=== PATIENT | male | born 1930 | race Asian ===

== ENCOUNTER 2018-10-19 23:25 | Inpatient (IN) | payer MEDICARE, MEDICAID ==
[~2018-10-19] VITALS: Ht 165.1 cm; Wt 68.0 kg
[2018-10-19 23:25] VITALS: BP 157/88
[2018-10-19] MEDS ORDERED: ADALAT20 MG ORAL (23:32)
[2018-10-19] MEDS ORDERED: BENADRYL25 MG ORAL (23:35)
[2018-10-19] MEDS ORDERED: ACETAMINOPHEN325 M1 ORAL (23:35)
[2018-10-19] MEDS ORDERED: METOPROLOL TART25 MG ORAL (23:35)
[2018-10-19] MEDS ORDERED: CLARITIN10 M2 ORAL (23:35)
[2018-10-19] MEDS ORDERED: NAMZARIC 28 MG1 EACH PO (23:35)
[2018-10-19] MEDS ORDERED: QUETIAPINE FUMA25 MG ORAL (23:35)
--- NOTE | 2018-10-19 23:35 | NUR ---
ED Nurse Note: PT wa brought in by ra Felder from [facility] c/o aloc, per ems, staff there told them that the pt is not on the usual mental status.
[2018-10-20 00:20] LABS: APPEARANCE,URINE SLIGHTLY CLOUDY; BILIRUBIN, URINE NEGATIVE (NEGATIVE); GLUCOSE, URINE (UA) 1+ (NEGATIVE); KETONES,URINE 1+ (NEGATIVE); LEUKOCYTE ESTERASE ,URINE 1+ (NEGATIVE); NITRITE,URINE NEGATIVE (NEGATIVE); PH,URINE 5 (4.5-8.0); PROTEIN,URINE 3+ (NEGATIVE); UROBILINOGEN,URINE NORMAL MG/DL (0.0-1.0)
[2018-10-20 00:25] LABS: BASOPHILS % (AUTO) 0.8 % (0.0-2.0); EOSINOPHILS % (AUTO) 0.7 % (0.0-3.0); HEMATOCRIT 32.7 % (42.0-52.0); HEMOGLOBIN 11.3 G/DL (14.2-18.0); LYMPHOCYTES % (AUTO) 9.3 % (20.0-45.0); MEAN CORPUSCULAR VOLUME 98 FL (80-99); MONOCYTES % (AUTO) 7.3 % (1.0-10.0); NEUTROPHILS % (AUTO) 81.9 % (45.0-75.0); PLATELET COUNT 183 K/UL (150-450); RED BLOOD COUNT 3.33 M/UL (4.70-6.10); WHITE BLOOD COUNT 7.8 K/UL (4.8-10.8)
[2018-10-20 00:33] LABS: COLOR,URINE YELLOW
[2018-10-20 00:33] LABS: ANION GAP 12 mmol/L (5-15); BLOOD UREA NITROGEN 43 mg/dL (7-18); CALCIUM 9.6 MG/DL (8.5-10.1); CARBON DIOXIDE 25 MMOL/L (21-32); CHLORIDE 105 MMOL/L (98-107); CREATININE 3.1 MG/DL (0.55-1.30); POTASSIUM 4.8 MMOL/L (3.5-5.1); SODIUM 141 MMOL/L (136-145)
[2018-10-20] MEDS ORDERED: LORazepam Inj 2mg/ml 1ml IV ONE (00:45)
[2018-10-20] MEDS ORDERED: cefTRIAXone 1 GM in NS 55 ML IVPB ONE (00:45)
[2018-10-20] MEDS ORDERED: Haloperidol 5mg/ml Inj IM ONE (01:15)
[2018-10-20 01:36] VITALS: BP 150/88
--- NOTE | 2018-10-20 01:48 | Emergency Room Report ---
History of Present Illness General Chief Complaint: Altered Level of Consciousness Source: Medical Record, EMS Present Illness HPI Is an 87 year-old Occitan speaking male with a history of dementia and high blood pressure. He resided in an assisted living facility. EMS was called for altered mental status. According to truck driver instructor, nursing staff said that at baseline he has some confusion but appear to be more confused today. His heart rate was also elevated in the 140s. Patient does not appear to be any distress. There was no nausea vomiting or pain complaint. Allergies: Coded Allergies: No Known Allergies (Unverified , 10/19/18) Patient History Past Medical History: see triage record, old chart reviewed, HTN Past Surgical History: other Pertinent Family History: none Social History: Denies: smoking Immunizations: other Reviewed Nursing Documentation: PMH: Agreed; PSxH: Agreed Nursing Documentation-PMH Hx Hypertension: Yes History Of Psychiatric Problem: Yes - dementia Review of Systems Eye: Denies: eye pain, blurred vision ENT: Denies: ear pain, nose congestion, throat swelling Respiratory: Denies: cough, shortness of breath Cardiovascular: Denies: chest pain, palpitations Gastrointestinal: Denies: abdominal pain, diarrhea, nausea, vomiting Musculoskeletal: Denies: back pain, joint pain Skin: Denies: rash Neurological: Denies: headache, numbness Endocrine: Denies: increased thirst, increased urine Hematologic/Lymphatic: Denies: easy bruising All Other Systems: negative except mentioned in HPI Physical Exam Vital Signs Date Time Temp Pulse Resp B/P (MAP) Pulse Ox O2 Delivery O2 Flow Rate FiO2 10/19/18 23:21 98.4 76 17 157/88 100 Room Air 10/19/18 23:25 99 vitals with high blood pressure Sp02 EP Interpretation: reviewed, normal General Appearance: well appearing, no apparent distress, alert Head: normocephalic, atraumatic Eyes: bilateral eye PERRL, bilateral eye EOMI ENT: hearing grossly normal, normal pharynx Neck: full range of motion, supple, no meningismus Respiratory: chest non-tender, lungs clear, normal breath sounds Cardiovascular #1: regular rate, rhythm, no murmur, tachycardia Gastrointestinal: normal bowel sounds, non tender, no mass, no organomegaly, no bruit, non-distended Musculoskeletal: back normal, normal range of motion Neurologic: grossly normal Psychiatric: other - Agitated Skin: warm/dry Medical Decision Making Diagnostic Impression: Primary Impression: ACS (acute coronary syndrome) Additional Impressions: UTI (urinary tract infection) Qualified Codes: N30.00 - Acute cystitis without hematuria Anemia Qualified Codes: D64.9 - Anemia, unspecified ARF (acute renal failure) Qualified Codes: N17.9 - Acute kidney failure, unspecified Proteinuria Qualified Codes: R80.9 - Proteinuria, unspecified Encephalopathy acute ER Course Patient presents with an altered mental status. This may be secondary to infection from UTI. Was tachycardic here in the low 100-110s. When he became more agitated and heart rate goes up to the 120s to 130s, there is more prominent ST depression. This is concerning for demand ischemia. His troponin is elevated. He may have a non-STEMI. Aspirin and Lovenox given here. No evidence of TIA or CVA. According to senior living note, he is a DO NOT RESUSCITATE. Will admit for further workup and cardiology consult. Baseline creatinine is unknown since this is first time here. I contacted Dr. Kirby for admission. Laboratory Tests Test 10/19/18 23:45 10/20/18 00:00 White Blood Count 7.8 K/UL (4.8-10.8) Red Blood Count 3.33 M/UL (4.70-6.10) L Hemoglobin 11.3 G/DL (14.2-18.0) L Hematocrit 32.7 % (42.0-52.0) L Mean Corpuscular Volume 98 FL (80-99) Mean Corpuscular Hemoglobin 34.0 PG (27.0-31.0) H Mean Corpuscular Hemoglobin Concent 34.6 G/DL (32.0-36.0) Red Cell Distribution Width 12.0 % (11.6-14.8) Platelet Count 183 K/UL (150-450) Mean Platelet Volume 6.9 FL (6.5-10.1) Neutrophils (%) (Auto) 81.9 % (45.0-75.0) H Lymphocytes (%) (Auto) 9.3 % (20.0-45.0) L Monocytes (%) (Auto) 7.3 % (1.0-10.0) Eosinophils (%) (Auto) 0.7 % (0.0-3.0) Basophils (%) (Auto) 0.8 % (0.0-2.0) Sodium Level 141 MMOL/L (136-145) Potassium Level 4.8 MMOL/L (3.5-5.1) Chloride Level 105 MMOL/L (98-107) Carbon Dioxide Level 25 MMOL/L (21-32) Anion Gap 12 mmol/L (5-15) Blood Urea Nitrogen 43 mg/dL (7-18) H Creatinine 3.1 MG/DL (0.55-1.30) H Estimat Glomerular Filtration Rate mL/min (>60) Glucose Level 157 MG/DL (74-106) H Calcium Level 9.6 MG/DL (8.5-10.1) Troponin I 0.422 ng/mL (0.000-0.056) Urine Color Yellow Urine Appearance Slightly cloudy Urine pH 5 (4.5-8.0) Urine Specific [place] 1.020 (1.005-1.035) Urine Protein 3+ (NEGATIVE) H Urine Glucose (UA) 1+ (NEGATIVE) H Urine Ketones 1+ (NEGATIVE) H Urine Blood 2+ (NEGATIVE) H Urine Nitrite Negative (NEGATIVE) Urine Bilirubin Negative (NEGATIVE) Urine Urobilinogen Normal MG/DL (0.0-1.0) Urine Leukocyte Esterase 1+ (NEGATIVE) H Urine RBC 2-4 /HPF (0 - 0) H Urine WBC 2-4 /HPF (0 - 0) Urine Squamous Epithelial Cells Few /LPF (NONE/OCC) Urine Amorphous Sediment Many /LPF (NONE) H Urine Bacteria Moderate /HPF (NONE) H Urine Coarse Granular Casts 5-10 /LPF (NONE) H Lab Results Impression labs with elevated troponin and creatinine EKG Diagnostic Results Rate: tachycardiac Rhythm: NSR ST Segments: other - NSST changes Other Impression EKG #2: sinus tach at 129, ST depression anterior-laterally. Baseline tremors. ASA given to the pt in ED: Yes Rhythm Strip Diag. Results Rhythm Strip Time: 01:47 EP Interpretation: yes Rate: 105 Rhythm: NSR, no PVC's, no ectopy Chest X-Ray Diagnostic Results Chest X-Ray Diagnostic Results : Chest X-Ray Ordered: Yes # of Views/Limited/Complete: 1 View Indication: Chest Pain EP Interpretation: Yes Interpretation: no consolidation, no effusion, no pneumothorax, no acute cardiopulmonary disease Impression: No acute disease Electronically Signed by: Trey Ramon MD CT/MRI/US Diagnostic Results CT/MRI/US Diagnostic Results : Imaging Test Ordered: CT head Impression negative per radiologist Last Vital Signs Date Time Temp Pulse Resp B/P (MAP) Pulse Ox O2 Delivery O2 Flow Rate FiO2 10/20/18 01:36 98.4 72 17 150/88 100 Room Air 10/19/18 23:25 99 Status: improved Disposition: ADMITTED INPATIENT Condition: Serious Referrals: NON PHYSICIAN (PCP) Trey Ramon MD Oct 20, 2018 01:48
--- NOTE | 2018-10-20 02:00 | NUR ---
Note rissa in EDM - 10/20/18 at 0252 by MOHIT ED Nurse Note: PT is transfered to [facility] with BRANT TORRES. pt has been transfered with all belongings. pt status, condition and vital signs [facility] to transfer and is reported to reciving RN. pt is stable for transfer.
[2018-10-20 02:51] VITALS: BP 151/86
--- NOTE | 2018-10-20 02:52 | NUR ---
ED Nurse Note: PT is transfered to TELE floor with RN MELISSA. pt has been transfered with all belongings. pt status, condition and vital signs is reported to ERMD prior to transfer and is reported to reciving RN. pt is stable for transfer.
--- NOTE | 2018-10-20 03:00 | NUR ---
NURSE NOTES: Report received from Alexis TOOLMAKER HELPER. Patient is transferred via gurney without any incident from ER to Telemetry. Patient is arousable by voice and tactile stimuli, unable to follow commands and verbalized needs. Vital signs are as follows: BP: 160/85, HR: 98, O2: 96, T: 98.1. Patient has no s/s of distress at this time. IV on LFA 18g, asymptomatic, patent, and intact. Skin assessment done with charge nurse. No skin tear noted. Bilateral edema shown on lower extremities. Bed is in lowest position with side rails up x2 and brakes are engaged. Bed alarm is on. Will continue to monitor.
--- NOTE | 2018-10-20 05:57 | NUR ---
NURSE NOTES: Contacted Dr. Mendoza regarding inpatient orders, awaiting call back.
--- NOTE | 2018-10-20 06:00 | NUR ---
NURSE NOTES: Attempted to contact [facility] regarding patient's PNA and influenza vaccine status, however, no one answered. Will retry at a later time.
--- NOTE | 2018-10-20 06:23 | NUR ---
NURSE NOTES: Spoke to [employer] boss [facility], per RN, unable to provide influenza and PNA vaccine due to medical records being closed at this time, recommended to call office hours between [phone]. Will endorse to day shift nurse.
[2018-10-20] MEDS ORDERED: Acetaminophen 500mg (ES) tab ORAL PRN (06:30)
--- NOTE | 2018-10-20 07:27 | NUR ---
HAND-OFF: Report given to Pancho GUO. Patient is asleep but arousable by tactile stimuli. Respiratory even and unlabored. Endorsed plan of care.
--- NOTE | 2018-10-20 07:32 | NUR ---
NURSE NOTES: Received report from BRANT Hernandez. Patient asleep and is in stable condition. No acute distress/SOB noted. Will continue plan of care.
[2018-10-20 08:00] VITALS: BP 130/75
--- NOTE | 2018-10-20 09:00 | Diagnostic Imaging Report ---
Indications: Altered mental status Technique: Spiral acquisitions obtained through the brain. Angled axial and coronal 5 x 5 mm slices were reconstructed. Total dose length product 2202.8 mGycm. CTDI vol(s) 70.38,70.38 mGy. Dose reduction achieved using automated exposure control Comparison: None. Findings: There is marked age-related enlargement of the ventricles and extra-axial CSF spaces. 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 No acute intrarenal hemorrhage nor edema. No mass effect nor midline shift. Intact calvarium. Visualized orbits and sinuses are unremarkable Impression: Chronic and age-related changes. Negative for acute intracranial bleed or mass effect This agrees with the preliminary interpretation provided overnight by [facility] teleradiology service. The CT scanner at [facility] is accredited by the [employer] and the scans are performed using protocols designed to limit radiation exposure to as low as reasonably achievable to attain images of sufficient resolution adequate for diagnostic evaluation.
[2018-10-20] MEDS: Metoprolol 25mg tab ORAL SCH ×2 (09:15→21:09)
[2018-10-20 09:19] LABS: BASOPHILS % (AUTO) 0.7 % (0.0-2.0); EOSINOPHILS % (AUTO) 1.4 % (0.0-3.0); HEMATOCRIT 31.9 % (42.0-52.0); HEMOGLOBIN 10.5 G/DL (14.2-18.0); LYMPHOCYTES % (AUTO) 18.2 % (20.0-45.0); MEAN CORPUSCULAR VOLUME 100 FL (80-99); MONOCYTES % (AUTO) 10.4 % (1.0-10.0); NEUTROPHILS % (AUTO) 69.2 % (45.0-75.0); PLATELET COUNT 143 K/UL (150-450); RED BLOOD COUNT 3.19 M/UL (4.70-6.10); RED CELL DISTRIBUTION WIDTH 12.6 % (11.6-14.8); WHITE BLOOD COUNT 6.7 K/UL (4.8-10.8)
[2018-10-20 09:49] LABS: ALANINE AMINOTRANSFERASE 36 U/L (12-78); ALBUMIN 2.9 G/DL (3.4-5.0); ALBUMIN/GLOBULIN RATIO 0.9 (1.0-2.7); ALKALINE PHOSPHATASE 65 U/L (46-116); ANION GAP 12 mmol/L (5-15); ASPARTATE AMINO TRANSFERASE 54 U/L (15-37); BILIRUBIN,TOTAL 0.7 MG/DL (0.2-1.0); BLOOD UREA NITROGEN 36 mg/dL (7-18); CARBON DIOXIDE 23 MMOL/L (21-32); CHLORIDE 108 MMOL/L (98-107); CHOLESTEROL 145 MG/DL (< 200); CREATININE 2.6 MG/DL (0.55-1.30); HDL CHOLESTEROL 32 MG/DL (40-60); PHOSPHORUS 2.8 MG/DL (2.5-4.9); POTASSIUM 4.3 MMOL/L (3.5-5.1); SODIUM 143 MMOL/L (136-145); TRIGLYCERIDES 108 MG/DL (30-150)
[2018-10-20 09:57] LABS: CALCIUM 8.6 MG/DL (8.5-10.1)
--- NOTE | 2018-10-20 10:54 | Diagnostic Imaging Report ---
Indication: Cough Technique: One view of the chest Comparison: none Findings: The heart is upper limits normal in size. The lungs and pleural spaces are clear. The aorta is tortuous and calcified Impression: No acute process
--- NOTE | 2018-10-20 11:19 | NUR ---
NURSE NOTES: Informed Dr. Garcia regarding Troponin level.
[2018-10-20 12:00] VITALS: BP 161/74
--- NOTE | 2018-10-20 14:15 | Consultation ---
Consult Note Consult Note asked to eval for renal failure NEHA Is an 87 year-old Swedish speaking male with a history of dementia and high blood pressure. He resided in an assisted living facility. EMS was called for altered mental status. According to park interpreter, nursing staff said that at baseline he has some confusion but appear to be more confused today. His heart rate was also elevated in the 140s. Patient does not appear to be any distress. There was no nausea vomiting or pain complaint. No Known Allergies (Unverified , 10/19/18) Hx Hypertension: Yes History Of Psychiatric Problem: Yes - dementia examined discussed with animal control supervisor/Plan Acute on chronic renal failure Dehydration Anemia UTI Elevated troponin HTN Dementia Plan: Hydrate- Flomax Nitropaste ASA Anemia abbasi BP control per orders Wallace Ny MD Oct 20, 2018 14:15
[2018-10-20] MEDS ORDERED: HydrALAZINE 25mg tab ORAL PRN (14:30)
[2018-10-20] MEDS: Nitroglycerin Patch 0.4mg TDERMAL SCH (14:53)
[2018-10-20] MEDS: D5NS 1,000 ML IV SCH (14:55)
--- NOTE | 2018-10-20 15:13 | NUR ---
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 98.5 HR 76 RR 17 B/P 157/86 BUN 43 CR 3.1 TROP 0.422 URINE + PROTEIN,KETONES,RBC,LEUKOCYTE ESTERASE,BACTERIA CXR= NO ACUTE PROCESS HEAD CT= NO BLEEDING IS: IV BOLUS NS X 1 LITER HALDOL ADMITTED TO TELE @ 0303 TELE STATUS
--- NOTE | 2018-10-20 15:15 | Consultation ---
DATE OF CONSULTATION: 10/20/2018 INFECTIOUS DISEASES CONSULTATION CONSULTING PHYSICIAN: Bret Lilly M.D. PRIMARY ATTENDING PHYSICIAN: Raquel Mendoza M.D. REASON FOR CONSULTATION: UTI. HISTORY OF PRESENT ILLNESS: The patient is an 87-year-old male admitted today from assisted living with altered mental status. At the time of admission, the patient had a heart rate of 140, had elevated troponin, was found to have acute renal failure. The patient is not a source of history. PAST MEDICAL HISTORY: Significant for diabetes and hypertension. ALLERGIES: No known drug allergies. MEDICATIONS: Got a dose of ceftriaxone, haloperidol, and lorazepam. In the ER currently on metoprolol and Tylenol. SOCIAL HISTORY: Single, in assisted living, Persian. Has daughter and son. REVIEW OF SYSTEMS: Unobtainable. PHYSICAL EXAMINATION: VITAL SIGNS: Temperature 97.7, pulse 67, blood pressure 130/75. GENERAL APPEARANCE: He seems to have normal weight, no acute distress. HEAD AND NECK: [place] conjunctiva. HEART: S1 and S2. Regular. LUNGS: Clear. ABDOMEN: Soft, nontender. EXTREMITIES: No edema. SKIN: Bruises. LABORATORY AND DIAGNOSTIC DATA: Sodium 143, potassium 4.3, chloride 108, bicarbonate 23, BUN 36, and creatinine 2.6. Creatinine at the time of admission was 3.1. Uric acid was 9.2, and glucose 134. The highest troponin level was 0.503. Albumin is 2.9. UA showed wbc's of 2 to 4, rbc's of 2 to 4, leukocyte esterase 1+. Cultures are pending. There was no chest x-ray. CT scan of the head showed chronic age-related changes, no acute intracranial bleeding or mass effect. IMPRESSION: 1. Altered mental status, we will try to rule out infection as a cause. 2. Elevated troponin likely non-ST myocardial infarction. 3. Acute renal failure. 4. Dementia. 5. Hypertension. RECOMMENDATION: We will continue with ceftriaxone. We will obtain a chest x-ray. We will follow up the cultures. At the end of my exam, I thank Dr. Mendoza for involving me in the care of this patient. Bret Lilly M.D. DR: Cynthia JOB#: [id number] CC:
[2018-10-20 16:00] VITALS: BP 153/91
--- NOTE | 2018-10-20 18:24 | Cardiology Report ---
APPROVED REPORT EKG Measurement Heart [id number] Sinus tachycardia with premature supraventricular complexes Left ventricular hypertrophy with repolarization abnormality Abnormal ECG
--- NOTE | 2018-10-20 19:26 | NUR ---
HAND-OFF: Report given to BRANT Rivera. Patient is stable condition. Endorsed plan of care.
--- NOTE | 2018-10-20 19:27 | NUR ---
NURSE NOTES: Received report from BRANT Deleon. Patient in bed awake, with no signs of acute distress. Respiration even and non labored on room air. No SOB. Vitals stable. Bed in lowest position. Call light within reach. All needs attended and met. Will continue plan of care.
--- NOTE | 2018-10-20 19:40 | Cardiology Progress Note ---
Assessment/Plan Assessment/Plan The patient is seen and examined, full cardiology consult note is dictated. Objective Last 24 Hour Vital Signs Date Time Temp Pulse Resp B/P (MAP) Pulse Ox O2 Delivery O2 Flow Rate FiO2 10/20/18 16:00 97.3 74 20 153/91 (111) 98 10/20/18 16:00 65 10/20/18 14:53 158/76 10/20/18 12:00 87 10/20/18 12:00 97.5 70 20 161/74 (103) 98 10/20/18 10:14 Room Air 10/20/18 09:15 67 130/75 10/20/18 08:00 68 10/20/18 08:00 97.7 67 18 130/75 (93) 97 10/20/18 04:49 Room Air 10/20/18 03:15 92 10/20/18 02:51 98.4 71 17 113/74 100 Room Air 99 10/20/18 02:51 98.4 71 17 151/86 100 Room Air 10/20/18 02:01 98.4 72 17 111/75 100 Room Air 99 10/20/18 01:36 98.4 72 17 150/88 100 Room Air 10/19/18 23:25 98.4 75 17 157/88 100 Room Air 10/19/18 23:25 76 17 Room Air 99 10/19/18 23:21 98.4 76 17 157/88 100 Room Air Intake and Output 10/19/18 10/20/18 19:00 07:00 Intake Total 1000 ml Balance 1000 ml Intake IV Total 1000 ml # Voids 1 Laboratory Tests Test 10/19/18 23:45 10/20/18 00:00 10/20/18 09:09 White Blood Count 7.8 K/UL (4.8-10.8) 6.7 K/UL (4.8-10.8) Red Blood Count 3.33 M/UL (4.70-6.10) L 3.19 M/UL (4.70-6.10) L Hemoglobin 11.3 G/DL (14.2-18.0) L 10.5 G/DL (14.2-18.0) L Hematocrit 32.7 % (42.0-52.0) L 31.9 % (42.0-52.0) L Mean Corpuscular Volume 98 FL (80-99) 100 FL (80-99) H Mean Corpuscular Hemoglobin 34.0 PG (27.0-31.0) H 33.0 PG (27.0-31.0) H Mean Corpuscular Hemoglobin Concent 34.6 G/DL (32.0-36.0) 33.0 G/DL (32.0-36.0) Red Cell Distribution Width 12.0 % (11.6-14.8) 12.6 % (11.6-14.8) Platelet Count 183 K/UL (150-450) 143 K/UL (150-450) L Mean Platelet Volume 6.9 FL (6.5-10.1) 6.4 FL (6.5-10.1) L Neutrophils (%) (Auto) 81.9 % (45.0-75.0) H 69.2 % (45.0-75.0) Lymphocytes (%) (Auto) 9.3 % (20.0-45.0) L 18.2 % (20.0-45.0) L Monocytes (%) (Auto) 7.3 % (1.0-10.0) 10.4 % (1.0-10.0) H Eosinophils (%) (Auto) 0.7 % (0.0-3.0) 1.4 % (0.0-3.0) Basophils (%) (Auto) 0.8 % (0.0-2.0) 0.7 % (0.0-2.0) Sodium Level 141 MMOL/L (136-145) 143 MMOL/L (136-145) Potassium Level 4.8 MMOL/L (3.5-5.1) 4.3 MMOL/L (3.5-5.1) Chloride Level 105 MMOL/L (98-107) 108 MMOL/L (98-107) H Carbon Dioxide Level 25 MMOL/L (21-32) 23 MMOL/L (21-32) Anion Gap 12 mmol/L (5-15) 12 mmol/L (5-15) Blood Urea Nitrogen 43 mg/dL (7-18) H 36 mg/dL (7-18) H Creatinine 3.1 MG/DL (0.55-1.30) H 2.6 MG/DL (0.55-1.30) H Estimat Glomerular Filtration Rate mL/min (>60) mL/min (>60) Glucose Level 157 MG/DL (74-106) H 134 MG/DL (74-106) H Calcium Level 9.6 MG/DL (8.5-10.1) 8.6 MG/DL (8.5-10.1) Troponin I 0.422 ng/mL (0.000-0.056) 0.503 ng/mL (0.000-0.056) Urine Color Yellow Urine Appearance Slightly cloudy Urine pH 5 (4.5-8.0) Urine Specific [place] 1.020 (1.005-1.035) Urine Protein 3+ (NEGATIVE) H Urine Glucose (UA) 1+ (NEGATIVE) H Urine Ketones 1+ (NEGATIVE) H Urine Blood 2+ (NEGATIVE) H Urine Nitrite Negative (NEGATIVE) Urine Bilirubin Negative (NEGATIVE) Urine Urobilinogen Normal MG/DL (0.0-1.0) Urine Leukocyte Esterase 1+ (NEGATIVE) H Urine RBC 2-4 /HPF (0 - 0) H Urine WBC 2-4 /HPF (0 - 0) Urine Squamous Epithelial Cells Few /LPF (NONE/OCC) Urine Amorphous Sediment Many /LPF (NONE) H Urine Bacteria Moderate /HPF (NONE) H Urine Coarse Granular Casts 5-10 /LPF (NONE) H Uric Acid 9.2 MG/DL (2.6-7.2) H Phosphorus Level 2.8 MG/DL (2.5-4.9) Magnesium Level 1.8 MG/DL (1.8-2.4) Total Bilirubin 0.7 MG/DL (0.2-1.0) Aspartate Amino Transf (AST/SGOT) 54 U/L (15-37) H Alanine Aminotransferase (ALT/SGPT) 36 U/L (12-78) Alkaline Phosphatase 65 U/L (46-116) C-Reactive Protein, Quantitative 6.8 mg/dL (0.00-0.90) H Total Protein 6.1 G/DL (6.4-8.2) L Albumin 2.9 G/DL (3.4-5.0) L Globulin 3.2 g/dL Albumin/Globulin Ratio 0.9 (1.0-2.7) L Triglycerides Level 108 MG/DL (30-150) Cholesterol Level 145 MG/DL (< 200) LDL Cholesterol 94 mg/dL (<100) HDL Cholesterol 32 MG/DL (40-60) L Cholesterol/HDL Ratio 4.5 (3.3-4.4) H Thyroid Stimulating Hormone (TSH) 1.093 uiU/mL (0.358-3.740) Microbiology Date/Time Source Procedure Growth Status 10/20/18 02:08 Rectum Received Chris Garcia MD Oct 20, 2018 19:40
[2018-10-20 20:00] VITALS: BP 155/89
[2018-10-20] MEDS: Tamsulosin 0.4mg cap ORAL SCH (21:08)
[2018-10-20] MEDS: Atorvastatin 20mg tab ORAL SCH (21:09)
--- NOTE | 2018-10-20 23:00 | Consultation ---
DATE OF CONSULTATION: 10/20/2018 CARDIOLOGY CONSULTATION CONSULTING PHYSICIAN: Chris Garcia M.D. REFERRING PHYSICIAN: Raquel Mendoza M.D. REASON FOR CONSULTATION: Management of tachycardia. HISTORY OF PRESENT ILLNESS: The patient is a very unfortunate 87-year-old Spanish gentleman, who is transferred from assisted living facility for evaluation of altered mental status. According to the paramedics, nursing staff at the facility mentioned that the patient showed some signs of confusion more than his baseline. His heart rate was also elevated around to 140s. At the time of arrival to the hospital, the initial blood pressure was 157/88 mmHg and pulse was 76. A 12-lead electrocardiogram in the emergency department revealed sinus rhythm at rate of 96 with frequent premature atrial complexes as well as some nonspecific ST and T-wave abnormalities. Ischemia could not be completely excluded. The patient underwent some initial evaluation in the emergency department including chest x-ray which showed cardiomegaly, but no acute cardiopulmonary disease as well as CT of head which revealed chronic and age-related changes negative for acute intracranial bleed or mass effect. Initial laboratory showed presence of anemia with hemoglobin of 11.3 and hematocrit 32.7, as well as left shift and creatinine of 3.1 and BUN of 43. The troponin I levels were also elevated at 0.4 and 0.5. Cardiology consultation was made at request of Dr. Mendoza for evaluation of tachycardia as well as assessing for possible [id number] myocardial infarction. PAST MEDICAL HISTORY: Hypertension. PAST SURGICAL HISTORY: None. MEDICATIONS: List of medications in the assisted living facility included acetaminophen 650 mg q.4 h. p.r.n. pain and temperature over 100.5, Benadryl 25 mg p.o. q.6 h. p.r.n. itching, Claritin 10 mg p.o. daily, Namzaric 28/10 one capsule p.o. daily, metoprolol 25 mg twice daily, nifedipine 30 mg p.o. daily, and Seroquel 25 mg p.o. daily. ALLERGIES: To EMMETT inhibitors and ARBs. FAMILY HISTORY: No premature coronary artery disease according to the records. SOCIAL HISTORY: No history of prior tobacco, alcohol, or illicit drug use. REVIEW OF SYSTEMS: HEENT: The patient denies any headache, diplopia, or blurred vision. CONSTITUTIONAL: Denies any fever, chills, night sweats, or weight loss. CARDIOVASCULAR: Did not complain of chest pain, shortness of breath, PND, orthopnea, or leg swelling. PULMONARY: Denies any cough, hemoptysis, or wheezing. GENITOURINARY: Denies any hematuria, dysuria, or incontinence. GASTROINTESTINAL: Denies any nausea, vomiting, diarrhea, constipation, abdominal pain, or GI bleed. NEUROLOGIC: Denies any motor dysfunction, sensory deficit, or altered speech. ENDOCRINE: No diabetes or signs of hypothyroidism or hyperthyroidism. PHYSICAL EXAMINATION: VITAL SIGNS: Blood pressure at time of arrival to the hospital was 157/88, pulse of 76, respirations 17, temperature 98.4 degrees Fahrenheit, and O2 saturation 100% on room air. GENERAL: The patient is a very unfortunate 87-year-old Spanish gentleman who appears to be confused, presence of language barrier, in no apparent respiratory distress. HEENT: Atraumatic and normocephalic. Anicteric. Pupils are equal, round, and reactive to light and accommodation. Extraocular muscles intact. NECK: JVP less than 5 cm. No carotid bruit. Carotid upstrokes 2+ bilaterally. CARDIOVASCULAR SYSTEM: Normal S1, S2. Regular rate and rhythm. No murmurs, gallops, or rubs. PMI is at fourth intercostal space at the midclavicular line. LUNGS: Clear to auscultation bilaterally. ABDOMEN: Soft, nontender, and nondistended. No hepatosplenomegaly. Positive bowel sounds. EXTREMITIES: No evidence of edema, clubbing, or cyanosis. Both upper extremity skin shows evidence of large ecchymosis in both forearms. LABORATORY FINDINGS: Sodium was 141, potassium 4.8, chloride 105, bicarbonate 25, BUN of 43, creatinine 3.1, glucose 157, calcium is 9.6. Troponin I is 0.40 and 0.050. TSH is 1.09. Triglycerides 108, total cholesterol 145, LDL is 94, HDL is 32. ASSESSMENT AND PLAN: The patient is a very unfortunate 87-year-old gentleman who is seen in Cardiology consultation. 1. Slight elevation of troponin I level in this patient could be [id number] myocardial infarction type 2 versus elevated troponin level due to chronic kidney disease. We will like to obtain 2D echocardiography for assessment of LV systolic function as well as wall motion abnormalities. The patient may benefit from cardiac catheterization in the long run once the stability of renal function is provided. At this time, I will agree with aspirin, statins, and beta-wyatt for double-product control. Further therapeutic and diagnostic decision depends on the clinical course of the patient in the next few days, in particular the status of renal function as well as the results of 2D echocardiography. Given the fact that the patient does not have any chest pain, no further urgent test is required. 2. Hypertension. With evidence of hypertensive heart disease, I would agree with continuation of nifedipine that the pain was taking at home in association with beta-blockers. 3. Renal failure, acute versus chronic. The patient is currently being evaluated by cuff stitcher. 4. Altered level of consciousness, most likely due to worsening renal failure. CT of head was negative. We will continue the patient on hydration. I would like to thank, Dr. Mendoza, for allowing me to participate in the care of this patient. Chris Garcia M.D. DR: Neil JOB#: [id number] CC:
[2018-10-21] VITALS: BP 115/58
[2018-10-21] MEDS ORDERED: cefTRIAXone 1 GM in D5W 55 ML IVPB SCH (01:00)
[2018-10-21 04:00] VITALS: BP 91/45
--- NOTE | 2018-10-21 04:00 | History and Physical Report ---
DATE OF ADMISSION: 10/20/2018 HISTORY OF PRESENT ILLNESS: The patient is admitted to rule out ACS and urinary tract infection. The patient is demented, contracted, has mumbled speech, eyes opened. We cannot get any history. The patient has ecchymosis on both hands and is admitted for altered mental status as well as urinary tract infection. The patient has dementia. According to the , he has been more confused than baseline. He is lethargic; however, responds to deep noxious stimuli. He is DNR. [place] speaking. CT scan of the head was negative. He has borderline elevated troponin and acute renal failure. PAST MEDICAL HISTORY: Organic brain syndrome and psychosis as well as history of hypertension and history of dementia. ALLERGIES: EMMETT inhibitors. MEDICATIONS: Loratadine, Namenda, metoprolol, and Seroquel. FAMILY HISTORY: Noncontributory. SOCIAL HISTORY: Unable to obtain. REVIEW OF SYSTEMS: Unable to obtain. PHYSICAL EXAMINATION: VITAL SIGNS: Temperature 97.7, pulse rate is 67, and blood pressure 130/75. HEENT: PERRLA. NECK: Supple. No lymphadenopathy. CHEST: Clear to auscultation. CARDIOVASCULAR: Regular rate and rhythm. No murmurs or extra sounds. GASTROINTESTINAL: Soft, nontender, and nondistended. EXTREMITIES: The patient has contractures. SKIN: For skin integrity and decubitus, please refer to the nursing notes. NEUROLOGIC: Not oriented. LABORATORY DATA: WBC of 7.8, hemoglobin of 11.3, and platelets of 183. Sodium 141, potassium 4.8, BUN of 43, creatinine 3.1, and glucose of 157. Troponin of 0.422. ASSESSMENT AND PLAN: Acute renal failure, AMS, UTI, and elevated troponin. I have asked Dr. Garcia, Dr. Ny, and Dr. Queen to see the patient for the above-mentioned diagnoses and treatment. Antibiotics per Infectious Disease. Raquel Mendoza M.D. DR: JAQUI JOB#: [id number] CC:
[2018-10-21] MEDS: D5NS 1,000 ML IV SCH ×2 (04:28→17:05)
[2018-10-21 07:08] LABS: AMMONIA 21 umol/L (11-32)
[2018-10-21 07:14] LABS: % IRON SATURATION 13 % (15-50); IRON 22 ug/dL (50-175); TOTAL IRON BINDING CAPACITY 169 ug/dL (250-450)
[2018-10-21 07:21] LABS: ALANINE AMINOTRANSFERASE 26 U/L (12-78); ALBUMIN 2.8 G/DL (3.4-5.0); ALBUMIN/GLOBULIN RATIO 0.7 (1.0-2.7); ALKALINE PHOSPHATASE 66 U/L (46-116); ANION GAP 11 mmol/L (5-15); ASPARTATE AMINO TRANSFERASE 58 U/L (15-37); BILIRUBIN,TOTAL 0.6 MG/DL (0.2-1.0); BLOOD UREA NITROGEN 30 mg/dL (7-18); CALCIUM 8.9 MG/DL (8.5-10.1); CARBON DIOXIDE 25 MMOL/L (21-32); CHLORIDE 108 MMOL/L (98-107); CREATININE 2.3 MG/DL (0.55-1.30); FERRITIN 628 NG/ML (8-388); SODIUM 144 MMOL/L (136-145)
[2018-10-21 07:27] LABS: PHOSPHORUS 2.5 MG/DL (2.5-4.9)
--- NOTE | 2018-10-21 07:28 | NUR ---
NURSE NOTES: Received report from BRANT Hagen. Patient asleep. No acute distress/SOB noted. Will continue to plan of care.
--- NOTE | 2018-10-21 07:28 | NUR ---
HAND-OFF: Report given to BRANT Deleon.
[2018-10-21 07:39] LABS: BASOPHILS % (AUTO) 0.8 % (0.0-2.0); EOSINOPHILS % (AUTO) 0.8 % (0.0-3.0); HEMOGLOBIN 10.7 G/DL (14.2-18.0); LYMPHOCYTES % (AUTO) 8.9 % (20.0-45.0); MEAN CORPUSCULAR VOLUME 100 FL (80-99); MONOCYTES % (AUTO) 7.3 % (1.0-10.0); NEUTROPHILS % (AUTO) 82.2 % (45.0-75.0); PLATELET COUNT 163 K/UL (150-450); RED CELL DISTRIBUTION WIDTH 11.9 % (11.6-14.8); WHITE BLOOD COUNT 6.2 K/UL (4.8-10.8)
[2018-10-21 08:00] VITALS: BP 134/70
[2018-10-21] MEDS: Aspirin Baby 81mg ORAL SCH (08:39)
[2018-10-21] MEDS: Metoprolol 25mg tab ORAL SCH ×2 (08:39→21:00)
[2018-10-21 12:00] VITALS: BP 104/58
--- NOTE | 2018-10-21 13:45 | NUR ---
ST NOTE: BEDSIDE SWALLOW EVAL RECEIVED BEDSIDE SWALLOW EVAL ORDER CHART REVIEWED PRIOR THE EVALUATION PT IS A 87-YEAR-OLD JAPANESE-SPEAKING MALE WHO WAS ADMITTED DUE TO AMS. 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 ALERT, VERBAL BUT CONFUSED. FOLLOWS SIMPLE DIRECTIONS INCONSISTENTLY. JAPANESE-SPEAKING RADHA GUO IS ALSO AT BEDSIDE. GIVEN PO TRIALS: THIN(TSP/CUP), NECTAR THICK(TSP), PUREE(APPLE SAUCE AND PUDDING) INITIAL IMPRESSION: PROBABLE MILD TO MODERATE OR WORSENED OROPHARYNGEAL DYSPHAGIA MILDLY TO MODERATELY INCREASED ORAL TRANSIT TIME, ESPECIALLY WITH PUDDING, MILD INCREASED OROPHARYNGEAL TRANSIT TIME, FAIR LARYNGEAL ELEVATION, NO OVERT S/S OF ASPIRATION. HAS RISK FOR ASPIRATION DUE TO PT HAS H/O DEMENTIA AND H/O CVA. RECOMMENDATIONS: 1. FOR QUALITY OF LIFE, SLOWLY INITIATE LIQUIFIED PUREED, LIKE NECTAR THICK SOUP CONSISTENCY WITH NECTAR THICK LIQUIDS. 2. STRICT ASPIRATION PRECAUTIONS WITH 1TO1 FEEDING. 3. VIDEOSWALLOW STUDY IF NEEDED D/W RADHA GUO, AND INFORMED DR. HANY FRANCISCO RE:RESULTS AND RECOMMENDATIONS: POSTED ASPIRATION PRECAUTIONS SIGN. Addendum: 10/21/18 at 1446 by EUGENE BERGMAN BALANCE TRUER RECEIVED TELEPHONE ORDER FROM DR. HANY FRANCISCO FOR DIET ORDER. WILL FOLLOW. RADHA GUO NOTIFIED.
--- NOTE | 2018-10-21 14:17 | Infectious Diseases Prog Note ---
Assessment/Plan Assessment/Plan IMPRESSION: 1. Altered mental status, 2. Elevated troponin likely non-ST myocardial infarction. 3. Acute renal failure. 4. Dementia. 5. Hypertension. RECOMMENDATION: CXR & cultures are so far negative Discontinue ceftriaxone Subjective ROS Limited/Unobtainable: Yes Allergies: Coded Allergies: EMMETT INHIBITORS (Verified Allergy, Severe, 10/20/18) cough and severe facial swelling Objective Vital Signs Last 24 Hour Vital Signs Date Time Temp Pulse Resp B/P (MAP) Pulse Ox O2 Delivery O2 Flow Rate FiO2 10/21/18 12:00 97.0 73 16 104/58 (73) 94 10/21/18 09:00 Room Air 10/21/18 08:39 90 134/70 10/21/18 08:38 90 134/70 10/21/18 08:00 95 10/21/18 08:00 98.0 90 16 134/70 (91) 95 10/21/18 04:00 95 10/21/18 04:00 98.3 75 18 91/45 (60) 95 10/21/18 00:00 57 10/21/18 00:00 98.1 75 16 115/58 (77) 98 10/20/18 21:09 106 155/89 10/20/18 21:08 106 155/89 10/20/18 21:00 Room Air 10/20/18 20:00 98.4 106 18 155/89 (111) 97 10/20/18 20:00 112 10/20/18 16:00 97.3 74 20 153/91 (111) 98 10/20/18 16:00 65 10/20/18 14:53 158/76 Height (Feet): 5 Height (Inches): 5.00 Weight (Pounds): 150 General Appearance: no acute distress HEENT: mucous membranes moist Respiratory/Chest: lungs clear Cardiovascular: normal rate Abdomen: soft, non tender Extremities: no edema Neurologic/Psychiatric: disoriented Microbiology Date/Time Source Procedure Growth Status 10/20/18 00:00 Urine,Clean Catch Urine Culture - Preliminary NO GROWTH Resulted 10/20/18 02:08 Rectum - Preliminary Resulted 10/20/18 02:08 Rectum Received Laboratory Tests Test 10/21/18 06:10 White Blood Count 6.2 K/UL (4.8-10.8) Red Blood Count 3.20 M/UL (4.70-6.10) L Hemoglobin 10.7 G/DL (14.2-18.0) L Hematocrit 32.0 % (42.0-52.0) L Mean Corpuscular Volume 100 FL (80-99) H Mean Corpuscular Hemoglobin 33.4 PG (27.0-31.0) H Mean Corpuscular Hemoglobin Concent 33.4 G/DL (32.0-36.0) Red Cell Distribution Width 11.9 % (11.6-14.8) Platelet Count 163 K/UL (150-450) Mean Platelet Volume 6.6 FL (6.5-10.1) Neutrophils (%) (Auto) 82.2 % (45.0-75.0) H Lymphocytes (%) (Auto) 8.9 % (20.0-45.0) L Monocytes (%) (Auto) 7.3 % (1.0-10.0) Eosinophils (%) (Auto) 0.8 % (0.0-3.0) Basophils (%) (Auto) 0.8 % (0.0-2.0) Sodium Level 144 MMOL/L (136-145) Potassium Level 4.0 MMOL/L (3.5-5.1) Chloride Level 108 MMOL/L (98-107) H Carbon Dioxide Level 25 MMOL/L (21-32) Anion Gap 11 mmol/L (5-15) Blood Urea Nitrogen 30 mg/dL (7-18) H Creatinine 2.3 MG/DL (0.55-1.30) H Estimat Glomerular Filtration Rate mL/min (>60) Glucose Level 185 MG/DL (74-106) H Uric Acid 8.6 MG/DL (2.6-7.2) H Calcium Level 8.9 MG/DL (8.5-10.1) Phosphorus Level 2.5 MG/DL (2.5-4.9) Magnesium Level 1.7 MG/DL (1.8-2.4) L Iron Level 22 ug/dL (50-175) L Total Iron Binding Capacity 169 ug/dL (250-450) L Percent Iron Saturation 13 % (15-50) L Unsaturated Iron Binding 147 ug/dL (112-346) Ferritin 628 NG/ML (8-388) H Total Bilirubin 0.6 MG/DL (0.2-1.0) Aspartate Amino Transf (AST/SGOT) 58 U/L (15-37) H Alanine Aminotransferase (ALT/SGPT) 26 U/L (12-78) Alkaline Phosphatase 66 U/L (46-116) Ammonia 21 umol/L (11-32) Troponin I 0.339 ng/mL (0.000-0.056) Pro-B-Type Natriuretic Peptide 75467 pg/mL (0-125) H Total Protein 6.9 G/DL (6.4-8.2) Albumin 2.8 G/DL (3.4-5.0) L Globulin 4.1 g/dL Albumin/Globulin Ratio 0.7 (1.0-2.7) L Vitamin B12 Level 680 PG/ML (193-986) Folate 2.8 NG/ML (8.6-58.9) L Current Medications Medications (Trade) Dose Ordered Sig/Jamel Route PRN Reason Start Time Stop Time Status Last Admin Dose Admin Acetaminophen (Tylenol) 650 mg Q4H PRN ORAL Mild Pain/Temp > 100.5 10/20/18 14:15 11/19/18 14:14 Aspirin (ASA) 81 mg DAILY ORAL 10/21/18 09:00 11/20/18 08:59 10/21/18 08:39 Atorvastatin Calcium (Lipitor) 20 mg BEDTIME ORAL 10/20/18 21:00 11/19/18 20:59 10/20/18 21:09 Ceftriaxone Sodium 1 gm/ Dextrose 55 ml @ 110 mls/hr Q24H IVPB 10/21/18 01:00 10/28/18 00:59 10/21/18 01:15 Clonidine HCl (Catapres Tab) 0.1 mg TIDPRN ORAL 10/20/18 20:00 11/19/18 19:59 Dextrose/Sodium Chloride 1,000 ml @ 75 mls/hr [id number] IV 10/20/18 14:15 11/19/18 14:14 10/21/18 04:28 Diphenhydramine HCl (Benadryl) 25 mg Q6H PRN ORAL Itching 10/20/18 14:15 11/19/18 14:14 Hydralazine HCl (Apresoline) 25 mg Q4H PRN ORAL bp over 160 syst 10/20/18 14:30 11/19/18 14:29 Metoprolol Tartrate (Lopressor) 25 mg EVERY 12 HOURS ORAL 10/20/18 09:00 11/19/18 08:59 10/21/18 08:39 Nifedipine (Procardia XL) 30 mg DAILY ORAL 10/20/18 19:55 11/19/18 19:54 10/21/18 08:38 Nitroglycerin (Ntg) 1 patch Q24H TDERMAL 10/20/18 15:00 11/19/18 14:59 10/20/18 14:53 Pantoprazole (Protonix) 40 mg EVERY 12 HOURS ORAL 10/20/18 21:00 11/19/18 20:59 10/21/18 08:39 Quetiapine Fumarate (SEROquel) 12.5 mg BID ORAL 10/20/18 18:00 11/19/18 17:59 10/21/18 08:39 Tamsulosin HCl (Flomax) 0.4 mg BEDTIME ORAL 10/20/18 21:00 11/19/18 20:59 10/20/18 21:08 Bret Lilly MD Oct 21, 2018 14:17
[2018-10-21] MEDS: Nitroglycerin Patch 0.4mg TDERMAL SCH (15:09)
[2018-10-21 16:00] VITALS: BP 112/62
--- NOTE | 2018-10-21 16:30 | Nephrology Progress Note ---
Assessment/Plan Problem List: (1) ARF (acute renal failure) (2) UTI (urinary tract infection) (3) Anemia (4) Dehydration Assessment Acute on chronic renal failure Cr lowering Dehydration Anemia UTI Elevated troponin HTN Dementia Plan Plan: Hydrate- Flomax Nitropaste ASA Anemia abbasi BP control per orders Subjective ROS Limited/Unobtainable: No Constitutional: Reports: malaise, weakness Objective Objective Last 24 Hour Vital Signs Date Time Temp Pulse Resp B/P (MAP) Pulse Ox O2 Delivery O2 Flow Rate FiO2 10/21/18 15:09 111/59 10/21/18 12:00 97.0 73 16 104/58 (73) 94 10/21/18 12:00 63 10/21/18 09:00 Room Air 10/21/18 08:39 90 134/70 10/21/18 08:38 90 134/70 10/21/18 08:00 95 10/21/18 08:00 98.0 90 16 134/70 (91) 95 10/21/18 04:00 95 10/21/18 04:00 98.3 75 18 91/45 (60) 95 10/21/18 00:00 57 10/21/18 00:00 98.1 75 16 115/58 (77) 98 10/20/18 21:09 106 155/89 10/20/18 21:08 106 155/89 10/20/18 21:00 Room Air 10/20/18 20:00 98.4 106 18 155/89 (111) 97 10/20/18 20:00 112 Intake and Output 10/20/18 10/21/18 19:00 07:00 Intake Total 1171.5 ml Balance 1171.5 ml IV Total 1171.5 ml # Voids 3 3 Laboratory Tests 10/21/18 06:10: White Blood Count 6.2, Red Blood Count 3.20L, Hemoglobin 10.7L, Hematocrit 32.0L , Mean Corpuscular Volume 100H, Mean Corpuscular Hemoglobin 33.4H, Mean Corpuscular Hemoglobin Concent 33.4, Red Cell Distribution Width 11.9, Platelet Count 163, Mean Platelet Volume 6.6, Neutrophils (%) (Auto) 82.2H, Lymphocytes ( %) (Auto) 8.9L, Monocytes (%) (Auto) 7.3, Eosinophils (%) (Auto) 0.8, Basophils (%) (Auto) 0.8, Sodium Level 144, Potassium Level 4.0, Chloride Level 108H, Carbon Dioxide Level 25, Anion Gap 11, Blood Urea Nitrogen 30H, Creatinine 2.3H , Estimat Glomerular Filtration Rate , Glucose Level 185H, Uric Acid 8.6H, Calcium Level 8.9, Phosphorus Level 2.5, Magnesium Level 1.7L, Iron Level 22L, Total Iron Binding Capacity 169L, Percent Iron Saturation 13L, Unsaturated Iron Binding 147, Ferritin 628H, Total Bilirubin 0.6, Aspartate Amino Transf (AST/ SGOT) 58H, Alanine Aminotransferase (ALT/SGPT) 26, Alkaline Phosphatase 66, Ammonia 21, Troponin I 0.339H, Pro-B-Type Natriuretic Peptide 56257D, Total Protein 6.9, Albumin 2.8L, Globulin 4.1, Albumin/Globulin Ratio 0.7L, Vitamin B12 Level 680, Folate 2.8L Height (Feet): 5 Height (Inches): 5.00 Weight (Pounds): 150 General Appearance: no apparent distress Objective no change Wallace Ny MD Oct 21, 2018 16:30
--- NOTE | 2018-10-21 19:01 | NUR ---
HAND-OFF: Report given to BRANT Hagen. Patient is in stable condition. No acute distress/SOB noted. Endorsed plan of care.
--- NOTE | 2018-10-21 19:02 | NUR ---
NURSE NOTES: Received report from BRANT Deleon. Patient in bed resting with no signs of acute distress. Respiration even and non labored on room. No SOB. Vitals stable. IV line patent and intact. Alert Oriented x1. Bed in lowest position. Call light within reach. All needs attended and met. Will continue plan of care.
[2018-10-21 20:00] VITALS: BP 116/54
[2018-10-21] MEDS: Tamsulosin 0.4mg cap ORAL SCH (21:04)
[2018-10-21] MEDS: Atorvastatin 20mg tab ORAL SCH (21:04)
--- NOTE | 2018-10-21 22:23 | General Progress Note ---
Assessment/Plan Problem List: (1) Encephalopathy acute ICD Codes: G93.40 - Encephalopathy, unspecified SNOMED: 36504034, 118584439 (2) UTI (urinary tract infection) ICD Codes: N39.0 - Urinary tract infection, site not specified SNOMED: 74709169, [id number] Qualifiers: Qualified Codes: N30.00 - Acute cystitis without hematuria (3) ARF (acute renal failure) ICD Codes: N17.9 - Acute kidney failure, unspecified SNOMED: 30749443 Qualifiers: Qualified Codes: N17.9 - Acute kidney failure, unspecified (4) Dehydration ICD Codes: E86.0 - Dehydration SNOMED: 01756328 Status: progressing Assessment/Plan afebrile ams uti dehydration reviewed chart and labs vitals stable Subjective ROS Limited/Unobtainable: Yes Allergies: Coded Allergies: EMMETT INHIBITORS (Verified Allergy, Severe, 10/20/18) cough and severe facial swelling Objective Last 24 Hour Vital Signs Date Time Temp Pulse Resp B/P (MAP) Pulse Ox O2 Delivery O2 Flow Rate FiO2 10/21/18 21:00 Room Air 10/21/18 21:00 94 116/54 10/21/18 20:00 97.7 88 18 116/54 (74) 94 10/21/18 20:00 92 10/21/18 16:00 97.1 76 16 112/62 (79) 95 10/21/18 16:00 84 10/21/18 15:09 111/59 10/21/18 12:00 97.0 73 16 104/58 (73) 94 10/21/18 12:00 63 10/21/18 09:00 Room Air 10/21/18 08:39 90 134/70 10/21/18 08:38 90 134/70 10/21/18 08:00 95 10/21/18 08:00 98.0 90 16 134/70 (91) 95 10/21/18 04:00 95 10/21/18 04:00 98.3 75 18 91/45 (60) 95 10/21/18 00:00 57 10/21/18 00:00 98.1 75 16 115/58 (77) 98 Intake and Output 10/20/18 10/21/18 19:00 07:00 Intake Total 1171.5 ml Balance 1171.5 ml IV Total 1171.5 ml # Voids 3 3 Laboratory Tests 10/21/18 06:10: White Blood Count 6.2, Red Blood Count 3.20L, Hemoglobin 10.7L, Hematocrit 32.0L , Mean Corpuscular Volume 100H, Mean Corpuscular Hemoglobin 33.4H, Mean Corpuscular Hemoglobin Concent 33.4, Red Cell Distribution Width 11.9, Platelet Count 163, Mean Platelet Volume 6.6, Neutrophils (%) (Auto) 82.2H, Lymphocytes ( %) (Auto) 8.9L, Monocytes (%) (Auto) 7.3, Eosinophils (%) (Auto) 0.8, Basophils (%) (Auto) 0.8, Sodium Level 144, Potassium Level 4.0, Chloride Level 108H, Carbon Dioxide Level 25, Anion Gap 11, Blood Urea Nitrogen 30H, Creatinine 2.3H , Estimat Glomerular Filtration Rate , Glucose Level 185H, Uric Acid 8.6H, Calcium Level 8.9, Phosphorus Level 2.5, Magnesium Level 1.7L, Iron Level 22L, Total Iron Binding Capacity 169L, Percent Iron Saturation 13L, Unsaturated Iron Binding 147, Ferritin 628H, Total Bilirubin 0.6, Aspartate Amino Transf (AST/ SGOT) 58H, Alanine Aminotransferase (ALT/SGPT) 26, Alkaline Phosphatase 66, Ammonia 21, Troponin I 0.339H, Pro-B-Type Natriuretic Peptide 91107V, Total Protein 6.9, Albumin 2.8L, Globulin 4.1, Albumin/Globulin Ratio 0.7L, Vitamin B12 Level 680, Folate 2.8L Height (Feet): 5 Height (Inches): 5.00 Weight (Pounds): 150 General Appearance: confused Cardiovascular: regular rhythm Respiratory/Chest: lungs clear Abdomen: soft Raquel Mendoza MD Oct 21, 2018 22:23
--- NOTE | 2018-10-21 23:18 | Cardiology Progress Note ---
Assessment/Plan Assessment/Plan 1. Slight elevation of troponin I level due to [id number] myocardial infarction type 2 versus elevated troponin level due to chronic kidney disease, continue aspirin, statins, and beta-wyatt for double-product control. 2D echo reveals normal LV systolic function with LVEF at 55%. Obtain stress test. 2. Hypertension, continue nifedipine nd beta-blockers. 3. Renal failure, acute versus chronic. 4. Altered level of consciousness. Objective Last 24 Hour Vital Signs Date Time Temp Pulse Resp B/P (MAP) Pulse Ox O2 Delivery O2 Flow Rate FiO2 10/21/18 21:00 Room Air 10/21/18 21:00 94 116/54 10/21/18 20:00 97.7 88 18 116/54 (74) 94 10/21/18 20:00 92 10/21/18 16:00 97.1 76 16 112/62 (79) 95 10/21/18 16:00 84 10/21/18 15:09 111/59 10/21/18 12:00 97.0 73 16 104/58 (73) 94 10/21/18 12:00 63 10/21/18 09:00 Room Air 10/21/18 08:39 90 134/70 10/21/18 08:38 90 134/70 10/21/18 08:00 95 10/21/18 08:00 98.0 90 16 134/70 (91) 95 10/21/18 04:00 95 10/21/18 04:00 98.3 75 18 91/45 (60) 95 10/21/18 00:00 57 10/21/18 00:00 98.1 75 16 115/58 (77) 98 Intake and Output 10/20/18 10/21/18 19:00 07:00 Intake Total 1171.5 ml Balance 1171.5 ml IV Total 1171.5 ml # Voids 3 3 2D Echo: LVEF 55%, Mod LVH, Mod LAE, RVSP 14mmHg, Mod AR/MR, Grade I LVDD Laboratory Tests Test 10/21/18 06:10 White Blood Count 6.2 K/UL (4.8-10.8) Red Blood Count 3.20 M/UL (4.70-6.10) L Hemoglobin 10.7 G/DL (14.2-18.0) L Hematocrit 32.0 % (42.0-52.0) L Mean Corpuscular Volume 100 FL (80-99) H Mean Corpuscular Hemoglobin 33.4 PG (27.0-31.0) H Mean Corpuscular Hemoglobin Concent 33.4 G/DL (32.0-36.0) Red Cell Distribution Width 11.9 % (11.6-14.8) Platelet Count 163 K/UL (150-450) Mean Platelet Volume 6.6 FL (6.5-10.1) Neutrophils (%) (Auto) 82.2 % (45.0-75.0) H Lymphocytes (%) (Auto) 8.9 % (20.0-45.0) L Monocytes (%) (Auto) 7.3 % (1.0-10.0) Eosinophils (%) (Auto) 0.8 % (0.0-3.0) Basophils (%) (Auto) 0.8 % (0.0-2.0) Sodium Level 144 MMOL/L (136-145) Potassium Level 4.0 MMOL/L (3.5-5.1) Chloride Level 108 MMOL/L (98-107) H Carbon Dioxide Level 25 MMOL/L (21-32) Anion Gap 11 mmol/L (5-15) Blood Urea Nitrogen 30 mg/dL (7-18) H Creatinine 2.3 MG/DL (0.55-1.30) H Estimat Glomerular Filtration Rate mL/min (>60) Glucose Level 185 MG/DL (74-106) H Uric Acid 8.6 MG/DL (2.6-7.2) H Calcium Level 8.9 MG/DL (8.5-10.1) Phosphorus Level 2.5 MG/DL (2.5-4.9) Magnesium Level 1.7 MG/DL (1.8-2.4) L Iron Level 22 ug/dL (50-175) L Total Iron Binding Capacity 169 ug/dL (250-450) L Percent Iron Saturation 13 % (15-50) L Unsaturated Iron Binding 147 ug/dL (112-346) Ferritin 628 NG/ML (8-388) H Total Bilirubin 0.6 MG/DL (0.2-1.0) Aspartate Amino Transf (AST/SGOT) 58 U/L (15-37) H Alanine Aminotransferase (ALT/SGPT) 26 U/L (12-78) Alkaline Phosphatase 66 U/L (46-116) Ammonia 21 umol/L (11-32) Troponin I 0.339 ng/mL (0.000-0.056) Pro-B-Type Natriuretic Peptide 69011 pg/mL (0-125) H Total Protein 6.9 G/DL (6.4-8.2) Albumin 2.8 G/DL (3.4-5.0) L Globulin 4.1 g/dL Albumin/Globulin Ratio 0.7 (1.0-2.7) L Vitamin B12 Level 680 PG/ML (193-986) Folate 2.8 NG/ML (8.6-58.9) L Microbiology Date/Time Source Procedure Growth Status 10/20/18 00:00 Urine,Clean Catch Urine Culture - Preliminary NO GROWTH Resulted 10/20/18 02:08 Rectum - Preliminary Resulted 10/20/18 02:08 Rectum Received Objective HEENT: Atraumatic and normocephalic. Anicteric. Pupils are equal, round, and reactive to light and accommodation. Extraocular muscles intact. NECK: JVP less than 5 cm. No carotid bruit. Carotid upstrokes 2+ bilaterally. CARDIOVASCULAR SYSTEM: Normal S1, S2. Regular rate and rhythm. No murmurs, gallops, or rubs. PMI is at fourth intercostal space at the midclavicular line. LUNGS: Clear to auscultation bilaterally. ABDOMEN: Soft, nontender, and nondistended. No hepatosplenomegaly. Positive bowel sounds. EXTREMITIES: No evidence of edema, clubbing, or cyanosis. Both upper extremity skin shows evidence of large ecchymosis in both forearms. Chris Garcia MD Oct 21, 2018 23:18
[2018-10-22] VITALS: BP 129/58
[2018-10-22 04:00] VITALS: BP 122/66
[2018-10-22] MEDS: D5NS 1,000 ML IV SCH ×2 (06:26→21:31)
--- NOTE | 2018-10-22 07:30 | NUR ---
NURSE NOTES: received patient report from jayshree cardenas. patient is on bed awake. no acute distress noted. bed is in high fowlers position. bed is low and locked. ST with PVCs as reported by the mirror machine feeder nurse. will continue to monitor.
--- NOTE | 2018-10-22 07:50 | NUR ---
HAND-OFF: Report given to BRANT Kennedy.
[2018-10-22 08:00] VITALS: BP 155/78
[2018-10-22] MEDS: Metoprolol 25mg tab ORAL SCH ×2 (08:50→21:32)
[2018-10-22] MEDS: Aspirin Baby 81mg ORAL SCH (08:50)
--- NOTE | 2018-10-22 10:43 | Nephrology Progress Note ---
Assessment/Plan Problem List: (1) ARF (acute renal failure) (2) UTI (urinary tract infection) (3) Anemia (4) Dehydration Assessment Acute on chronic renal failure Cr lowering Dehydration Anemia UTI Elevated troponin HTN Dementia Plan Plan: folic acid supplement no labs today Hydrate- Flomax Nitropaste ASA Anemia abbasi BP control per orders Subjective ROS Limited/Unobtainable: No Constitutional: Reports: malaise, weakness Objective Objective Last 24 Hour Vital Signs Date Time Temp Pulse Resp B/P (MAP) Pulse Ox O2 Delivery O2 Flow Rate FiO2 10/22/18 09:00 Room Air 10/22/18 08:50 83 155/78 10/22/18 08:50 83 155/78 10/22/18 08:00 89 10/22/18 08:00 98.1 83 16 155/78 (103) 98 10/22/18 04:00 97.5 69 18 122/66 (84) 93 10/22/18 04:00 105 10/22/18 00:00 98.0 71 18 129/58 (81) 92 10/22/18 00:00 84 10/21/18 21:00 Room Air 10/21/18 21:00 94 116/54 10/21/18 20:00 97.7 88 18 116/54 (74) 94 10/21/18 20:00 92 10/21/18 16:00 97.1 76 16 112/62 (79) 95 10/21/18 16:00 84 10/21/18 15:09 111/59 10/21/18 12:00 97.0 73 16 104/58 (73) 94 10/21/18 12:00 63 Intake and Output 10/21/18 10/22/18 18:59 06:59 Intake Total 240 ml 968.75 ml Balance 240 ml 968.75 ml Intake Oral 240 ml IV Total 968.75 ml # Voids 2 2 Height (Feet): 5 Height (Inches): 5.00 Weight (Pounds): 150 General Appearance: no apparent distress Cardiovascular: normal rate Respiratory/Chest: decreased breath sounds Abdomen: soft Objective no change Wallace Ny MD Oct 22, 2018 10:43
--- NOTE | 2018-10-22 11:33 | Consultation ---
History of Present Illness General Date patient seen: Oct 22, 2018 Chief Complaint: Altered Level of Consciousness Present Illness Allergies: Coded Allergies: EMMETT INHIBITORS (Verified Allergy, Severe, 10/20/18) cough and severe facial swelling Medication History Scheduled Loratadine (Claritin), 10 MG ORAL DAILY, (Reported) Metoprolol Tartrate* (Metoprolol Tartrate*), 25 MG ORAL EVERY 12 HOURS, ( Reported) Nifedipine (Nifedipine*), 30 MG ORAL ONCE, (Reported) Quetiapine Fumarate* (Seroquel*), 25 MG ORAL DAILY, (Reported) Scheduled PRN Acetaminophen* (Acetaminophen 325MG Tablet*), 650 MG ORAL Q4H PRN for Mild Pain/ Temp > 100.5, (Reported) Diphenhydramine Hcl* (Benadryl*), 25 MG ORAL Q6H PRN for Itching, (Reported) Miscellaneous Medications Memantine HCl/Donepezil HCl (Namzaric 28 mg-10 mg Capsule), 1 EACH PO, (Reported ) Patient History Healthcare decision maker Resuscitation status Do Not Resuscitate Advanced Directive on File No Physical Exam Last 24 Hour Vital Signs Date Time Temp Pulse Resp B/P (MAP) Pulse Ox O2 Delivery O2 Flow Rate FiO2 10/22/18 11:12 83 155/78 10/22/18 09:00 Room Air 10/22/18 08:50 83 155/78 10/22/18 08:50 83 155/78 10/22/18 08:00 89 10/22/18 08:00 98.1 83 16 155/78 (103) 98 10/22/18 04:00 97.5 69 18 122/66 (84) 93 10/22/18 04:00 105 10/22/18 00:00 98.0 71 18 129/58 (81) 92 10/22/18 00:00 84 10/21/18 21:00 Room Air 10/21/18 21:00 94 116/54 10/21/18 20:00 97.7 88 18 116/54 (74) 94 10/21/18 20:00 92 10/21/18 16:00 97.1 76 16 112/62 (79) 95 10/21/18 16:00 84 10/21/18 15:09 111/59 10/21/18 12:00 97.0 73 16 104/58 (73) 94 10/21/18 12:00 63 Intake and Output 10/21/18 10/22/18 18:59 06:59 Intake Total 240 ml 968.75 ml Balance 240 ml 968.75 ml Intake Oral 240 ml IV Total 968.75 ml # Voids 2 2 Laboratory Tests Test 10/22/18 06:10 C-Reactive Protein, Quantitative Pending Height (Feet): 5 Height (Inches): 5.00 Weight (Pounds): 150 Medications Current Medications Medications (Trade) Dose Ordered Sig/Jamel Route PRN Reason Start Time Stop Time Status Last Admin Dose Admin Acetaminophen (Tylenol) 650 mg Q4H PRN ORAL Mild Pain/Temp > 100.5 10/20/18 14:15 11/19/18 14:14 Amlodipine Besylate (Norvasc) 5 mg ONCE ORAL 10/22/18 11:00 10/22/18 12:00 10/22/18 11:12 Amlodipine Besylate (Norvasc) 10 mg DAILY ORAL 10/23/18 09:00 11/22/18 08:59 Aspirin (ASA) 81 mg DAILY ORAL 10/21/18 09:00 11/20/18 08:59 10/22/18 08:50 Atorvastatin Calcium (Lipitor) 10 mg BEDTIME ORAL 10/22/18 21:00 11/19/18 20:59 Clonidine HCl (Catapres Tab) 0.1 mg TIDPRN ORAL 10/20/18 20:00 11/19/18 19:59 Dextrose/Sodium Chloride 1,000 ml @ 75 mls/hr [id number] IV 10/20/18 14:15 11/19/18 14:14 10/22/18 06:26 Diphenhydramine HCl (Benadryl) 25 mg Q6H PRN ORAL Itching 10/20/18 14:15 11/19/18 14:14 Folic Acid (Folate) 5 mg DAILY ORAL 10/22/18 10:45 11/21/18 10:44 10/22/18 11:12 Hydralazine HCl (Apresoline) 25 mg Q4H PRN ORAL bp over 160 syst 10/20/18 14:30 11/19/18 14:29 Metoprolol Tartrate (Lopressor) 25 mg EVERY 12 HOURS ORAL 10/20/18 09:00 11/19/18 08:59 10/22/18 08:50 Nitroglycerin (Ntg) 1 patch Q24H TDERMAL 10/20/18 15:00 11/19/18 14:59 10/21/18 15:09 Pantoprazole (Protonix) 40 mg EVERY 12 HOURS ORAL 10/20/18 21:00 11/19/18 20:59 10/22/18 08:50 Quetiapine Fumarate (SEROquel) 12.5 mg BID ORAL 10/20/18 18:00 11/19/18 17:59 10/22/18 08:50 Tamsulosin HCl (Flomax) 0.4 mg BEDTIME ORAL 10/20/18 21:00 11/19/18 20:59 10/21/18 21:04 Assessment/Plan Assessment/Plan Hematology Consultation DOS: 10/22/18 RFC: Anemia darian QUINN MD: Dana Mendoza HPI Is an 87 year-old Telugu speaking male with a history of dementia and high blood pressure. He resided in an assisted living facility. EMS was called for altered mental status. According to field liability generalist, nursing staff said that at baseline he has some confusion but appear to be more confused today. His heart rate was also elevated in the 140s. Patient does not appear to be any distress. There was no nausea vomiting or pain complaint. Anemia eval w/u has been ordered as hgb is low and patient has levi on ckd, renal has been consulted as well as cards Coded Allergies: No Known Allergies (Unverified , 10/19/18) Past Medical History: see triage record, old chart reviewed, HTN Past Surgical History: other Pertinent Family History: none Social History: Denies: smoking Immunizations: other Reviewed Nursing Documentation: PMH: Agreed; PSxH: Agreed Hx Hypertension: Yes History Of Psychiatric Problem: Yes - dementia Review of Systems Eye: Denies: eye pain, blurred vision ENT: Denies: ear pain, nose congestion, throat swelling Respiratory: Denies: cough, shortness of breath Cardiovascular: Denies: chest pain, palpitations Gastrointestinal: Denies: abdominal pain, diarrhea, nausea, vomiting Musculoskeletal: Denies: back pain, joint pain Skin: Denies: rash Neurological: Denies: headache, numbness Endocrine: Denies: increased thirst, increased urine Hematologic/Lymphatic: Denies: easy bruising Physical Exam Last 24 Hour Vital Signs Date Time Temp Pulse Resp B/P (MAP) Pulse Ox O2 Delivery O2 Flow Rate FiO2 10/22/18 11:12 83 155/78 10/22/18 09:00 Room Air 10/22/18 08:50 83 155/78 10/22/18 08:50 83 155/78 10/22/18 08:00 89 10/22/18 08:00 98.1 83 16 155/78 (103) 98 10/22/18 04:00 97.5 69 18 122/66 (84) 93 10/22/18 04:00 105 10/22/18 00:00 98.0 71 18 129/58 (81) 92 10/22/18 00:00 84 10/21/18 21:00 Room Air 10/21/18 21:00 94 116/54 10/21/18 20:00 97.7 88 18 116/54 (74) 94 10/21/18 20:00 92 10/21/18 16:00 97.1 76 16 112/62 (79) 95 10/21/18 16:00 84 10/21/18 15:09 111/59 10/21/18 12:00 97.0 73 16 104/58 (73) 94 10/21/18 12:00 63 Physical Exam General Appearance: A+O x3, NAD HEENT: normocephalic, atraumatic Neck: non-tender, normal alignment Respiratory/Chest: chest wall non-tender, lungs clear Cardiovascular/Chest: normal peripheral pulses, normal rate Abdomen: normal bowel sounds, non tender Extremities: normal range of motion Laboratory Tests Test 10/22/18 11:10 C-Reactive Protein, Quantitative Pending Assessment and Recs: # Anemia of chronic disease with a hx of levi on ckd --> Anemia workup has been ordered --> No evidence of hemolysis is noted, peripheral smear has been reviewed. --> Hgb goal >7. Transfuse prn. --> Epogen or iron at this time is not particularly indicated --> Medications have been reviewed # Thrombocytopenia -- plts 130-200k --> hepatitis and hiv order if plts going down --> us abd to be ordered as well if plt downtrends # ACS (acute coronary syndrome) -- troponin is elevated. He may have a non- STEMI --> asa and lovenox were given --> cardiology recs appreciated # UTI (urinary tract infection) --> on abx as per id # LEVI on Ckd --> as per renal # Proteinuria # Encephalopathy acute The timing of this note does not necessarily reflect the time of the patient was seen Greatly appreciate consultation! Shamir Mendez MD Oct 22, 2018 11:33
[2018-10-22 12:00] VITALS: BP 104/60
--- NOTE | 2018-10-22 13:09 | Infectious Diseases Prog Note ---
Assessment/Plan Assessment/Plan IMPRESSION: 1. Altered mental status, 2. Elevated troponin likely non-ST myocardial infarction. 3. Acute renal failure. 4. Dementia. 5. Hypertension. RECOMMENDATION: CXR & cultures are so far negative Discontinue ceftriaxone Subjective ROS Limited/Unobtainable: Yes Constitutional: Reports: no symptoms Allergies: Coded Allergies: EMMETT INHIBITORS (Verified Allergy, Severe, 10/20/18) cough and severe facial swelling Objective Vital Signs Last 24 Hour Vital Signs Date Time Temp Pulse Resp B/P (MAP) Pulse Ox O2 Delivery O2 Flow Rate FiO2 10/22/18 11:12 83 155/78 10/22/18 09:00 Room Air 10/22/18 08:50 83 155/78 10/22/18 08:50 83 155/78 10/22/18 08:00 89 10/22/18 08:00 98.1 83 16 155/78 (103) 98 10/22/18 04:00 97.5 69 18 122/66 (84) 93 10/22/18 04:00 105 10/22/18 00:00 98.0 71 18 129/58 (81) 92 10/22/18 00:00 84 10/21/18 21:00 Room Air 10/21/18 21:00 94 116/54 10/21/18 20:00 97.7 88 18 116/54 (74) 94 10/21/18 20:00 92 10/21/18 16:00 97.1 76 16 112/62 (79) 95 10/21/18 16:00 84 10/21/18 15:09 111/59 Height (Feet): 5 Height (Inches): 5.00 Weight (Pounds): 150 General Appearance: no acute distress Respiratory/Chest: lungs clear Cardiovascular: normal rate Abdomen: soft, non tender Extremities: no edema Neurologic/Psychiatric: alert, disoriented Microbiology Date/Time Source Procedure Growth Status 10/20/18 02:08 Nasal Aspirate MRSA Culture - Final NO METHICILLIN RESISTANT STAPH AUREUS... Complete 10/20/18 00:00 Urine,Clean Catch Urine Culture - Preliminary NO GROWTH AFTER 24 HOURS Resulted 10/20/18 02:08 Rectum - Final NO CARBAPENEM-RESISTANT ENTEROBACTERI... Complete 10/20/18 02:08 Rectum VRE Culture - Final NO VANCOMYCIN RESISTANT ENTEROCOCCUS ... Complete Laboratory Tests Test 10/22/18 11:10 C-Reactive Protein, Quantitative 15.5 mg/dL (0.00-0.90) H Current Medications Medications (Trade) Dose Ordered Sig/Jamel Route PRN Reason Start Time Stop Time Status Last Admin Dose Admin Acetaminophen (Tylenol) 650 mg Q4H PRN ORAL Mild Pain/Temp > 100.5 10/20/18 14:15 11/19/18 14:14 Amlodipine Besylate (Norvasc) 10 mg DAILY ORAL 10/23/18 09:00 11/22/18 08:59 Aspirin (ASA) 81 mg DAILY ORAL 10/21/18 09:00 11/20/18 08:59 10/22/18 08:50 Atorvastatin Calcium (Lipitor) 10 mg BEDTIME ORAL 10/22/18 21:00 11/19/18 20:59 Clonidine HCl (Catapres Tab) 0.1 mg TIDPRN ORAL 10/20/18 20:00 11/19/18 19:59 Dextrose/Sodium Chloride 1,000 ml @ 75 mls/hr [id number] IV 10/20/18 14:15 11/19/18 14:14 10/22/18 06:26 Diphenhydramine HCl (Benadryl) 25 mg Q6H PRN ORAL Itching 10/20/18 14:15 11/19/18 14:14 Folic Acid (Folate) 5 mg DAILY ORAL 10/22/18 10:45 11/21/18 10:44 10/22/18 11:12 Hydralazine HCl (Apresoline) 25 mg Q4H PRN ORAL bp over 160 syst 10/20/18 14:30 11/19/18 14:29 Metoprolol Tartrate (Lopressor) 25 mg EVERY 12 HOURS ORAL 10/20/18 09:00 11/19/18 08:59 10/22/18 08:50 Nitroglycerin (Ntg) 1 patch Q24H TDERMAL 10/20/18 15:00 11/19/18 14:59 10/21/18 15:09 Pantoprazole (Protonix) 40 mg EVERY 12 HOURS ORAL 10/20/18 21:00 11/19/18 20:59 10/22/18 08:50 Quetiapine Fumarate (SEROquel) 12.5 mg BID ORAL 10/20/18 18:00 11/19/18 17:59 10/22/18 08:50 Tamsulosin HCl (Flomax) 0.4 mg BEDTIME ORAL 10/20/18 21:00 11/19/18 20:59 10/21/18 21:04 Bret Lilly MD Oct 22, 2018 13:09
[2018-10-22] MEDS: Nitroglycerin Patch 0.4mg TDERMAL SCH (15:15)
[2018-10-22 16:00] VITALS: BP 113/60
[2018-10-22] MEDS ORDERED: Tubing IV Secondary IV ONE (16:49)
[2018-10-22] MEDS ORDERED: D5NS 1000ml IV ONE (16:49)
--- NOTE | 2018-10-22 17:09 | Cardiology Progress Note ---
Assessment/Plan Assessment/Plan 1. Slight elevation of troponin I level due to [id number]-[id number] myocardial infarction type 2 versus elevated troponin level due to chronic kidney disease, continue aspirin, statins, and beta-wyatt for double-product control. 2D echo reveals normal LV systolic function with LVEF at 55%. 2. Hypertension, well controlled, continue amlodipine and metoprolol. 3. Renal failure, creatinine is downtrending. 4. Altered level of consciousness. Subjective Subjective Sinus rhythm at rate of 75. Objective Last 24 Hour Vital Signs Date Time Temp Pulse Resp B/P (MAP) Pulse Ox O2 Delivery O2 Flow Rate FiO2 10/22/18 16:00 97.0 75 16 113/60 (77) 96 10/22/18 16:00 60 10/22/18 15:15 104/60 10/22/18 12:00 94 10/22/18 12:00 97.4 89 16 104/60 (75) 93 10/22/18 11:12 83 155/78 10/22/18 09:00 Room Air 10/22/18 08:50 83 155/78 10/22/18 08:50 83 155/78 10/22/18 08:00 89 10/22/18 08:00 98.1 83 16 155/78 (103) 98 10/22/18 04:00 97.5 69 18 122/66 (84) 93 10/22/18 04:00 105 10/22/18 00:00 98.0 71 18 129/58 (81) 92 10/22/18 00:00 84 10/21/18 21:00 Room Air 10/21/18 21:00 94 116/54 10/21/18 20:00 97.7 88 18 116/54 (74) 94 10/21/18 20:00 92 Intake and Output 10/21/18 10/22/18 19:00 07:00 Intake Total 240 ml 968.75 ml Balance 240 ml 968.75 ml Intake Oral 240 ml IV Total 968.75 ml # Voids 2 2 2D Echo: LVEF 55%, Mod LVH, Mod LAE, RVSP 14mmHg, Mod AR/MR, Grade I LVDD Laboratory Tests Test 10/22/18 11:10 C-Reactive Protein, Quantitative 15.5 mg/dL (0.00-0.90) H Microbiology Date/Time Source Procedure Growth Status 10/20/18 02:08 Nasal Aspirate MRSA Culture - Final NO METHICILLIN RESISTANT STAPH AUREUS... Complete 10/20/18 00:00 Urine,Clean Catch Urine Culture - Preliminary NO GROWTH AFTER 24 HOURS Resulted 10/20/18 02:08 Rectum - Final NO CARBAPENEM-RESISTANT ENTEROBACTERI... Complete 10/20/18 02:08 Rectum VRE Culture - Final NO VANCOMYCIN RESISTANT ENTEROCOCCUS ... Complete Objective HEENT: Atraumatic and normocephalic. Anicteric. Pupils are equal, round, and reactive to light and accommodation. Extraocular muscles intact. NECK: JVP less than 5 cm. No carotid bruit. Carotid upstrokes 2+ bilaterally. CARDIOVASCULAR SYSTEM: Normal S1, S2. Regular rate and rhythm. No murmurs, gallops, or rubs. PMI is at fourth intercostal space at the midclavicular line. LUNGS: Clear to auscultation bilaterally. ABDOMEN: Soft, nontender, and nondistended. No hepatosplenomegaly. Positive bowel sounds. EXTREMITIES: No evidence of edema, clubbing, or cyanosis. Both upper extremity skin shows evidence of large ecchymosis in both forearms. Chris Garcia MD Oct 22, 2018 17:09
--- NOTE | 2018-10-22 19:28 | NUR ---
HAND-OFF: Report given to hien cardenas.
--- NOTE | 2018-10-22 19:29 | NUR ---
NURSE NOTES: Received report from Omer Cornelius RN. Pt is resting in the bed, no distress in RA. He constantly touching and trying to remove the cardiac care unit nurse leads. New leads is placed. Safety measures are applied w/ bed alarm on, bed in lowest position, side rails up x2, and breaks are engaged. Will follow plans of care.
[2018-10-22 20:00] VITALS: BP 124/89
--- NOTE | 2018-10-22 21:19 | General Progress Note ---
Assessment/Plan Problem List: (1) Encephalopathy acute ICD Codes: G93.40 - Encephalopathy, unspecified SNOMED: 30117132, 047391857 (2) UTI (urinary tract infection) ICD Codes: N39.0 - Urinary tract infection, site not specified SNOMED: 73984448, 198740488 Qualifiers: Qualified Codes: N30.00 - Acute cystitis without hematuria (3) ARF (acute renal failure) ICD Codes: N17.9 - Acute kidney failure, unspecified SNOMED: 18413454 Qualifiers: Qualified Codes: N17.9 - Acute kidney failure, unspecified (4) Dehydration ICD Codes: E86.0 - Dehydration SNOMED: 10048329 Status: progressing Assessment/Plan abx per id no acute change uti dehydration reviewed chart and labs Subjective ROS Limited/Unobtainable: Yes Allergies: Coded Allergies: EMMETT INHIBITORS (Verified Allergy, Severe, 10/20/18) cough and severe facial swelling Objective Last 24 Hour Vital Signs Date Time Temp Pulse Resp B/P (MAP) Pulse Ox O2 Delivery O2 Flow Rate FiO2 10/22/18 16:00 97.0 75 16 113/60 (77) 96 10/22/18 16:00 60 10/22/18 15:15 104/60 10/22/18 12:00 94 10/22/18 12:00 97.4 89 16 104/60 (75) 93 10/22/18 11:12 83 155/78 10/22/18 09:00 Room Air 10/22/18 08:50 83 155/78 10/22/18 08:50 83 155/78 10/22/18 08:00 89 10/22/18 08:00 98.1 83 16 155/78 (103) 98 10/22/18 04:00 97.5 69 18 122/66 (84) 93 10/22/18 04:00 105 10/22/18 00:00 98.0 71 18 129/58 (81) 92 10/22/18 00:00 84 Intake and Output 10/21/18 10/22/18 19:00 07:00 Intake Total 240 ml 968.75 ml Balance 240 ml 968.75 ml Intake Oral 240 ml IV Total 968.75 ml # Voids 2 2 Laboratory Tests 10/22/18 11:10: C-Reactive Protein, Quantitative 15.5H Height (Feet): 5 Height (Inches): 5.00 Weight (Pounds): 150 Neck: normal alignment Cardiovascular: normal rate Respiratory/Chest: lungs clear Abdomen: soft Raquel Mendoza MD Oct 22, 2018 21:19
[2018-10-22] MEDS: Tamsulosin 0.4mg cap ORAL SCH (21:31)
[2018-10-23] VITALS: BP 139/90
[2018-10-23 04:00] VITALS: BP 131/54
--- NOTE | 2018-10-23 06:09 | NUR ---
NURSE NOTES: Pt removed IV twice and also removed personnel monitor and leads many times. Currently, Pt is resting w/ distress. monitor tech and new IV are applied.
--- NOTE | 2018-10-23 07:05 | NUR ---
HAND-OFF: Report given to Carolee Law RN.
--- NOTE | 2018-10-23 07:10 | NUR ---
NURSE NOTES: Received report from BRANT Chin. Patient is awake and responsive to verbal and oriented x1. No acute distress/SOB noted. Will continue plan of care.
[2018-10-23 08:00] VITALS: BP 154/76
[2018-10-23 08:14] LABS: BASOPHILS % (AUTO) 0.5 % (0.0-2.0); HEMATOCRIT 31.8 % (42.0-52.0); HEMOGLOBIN 10.4 G/DL (14.2-18.0); LYMPHOCYTES % (AUTO) 16.1 % (20.0-45.0); MEAN CORPUSCULAR VOLUME 101 FL (80-99); MONOCYTES % (AUTO) 8.2 % (1.0-10.0); NEUTROPHILS % (AUTO) 73.3 % (45.0-75.0); PLATELET COUNT 179 K/UL (150-450); RED BLOOD COUNT 3.16 M/UL (4.70-6.10); RED CELL DISTRIBUTION WIDTH 12.2 % (11.6-14.8)
[2018-10-23] MEDS: Metoprolol 25mg tab ORAL SCH ×2 (08:21→20:59)
[2018-10-23] MEDS: D5NS 1,000 ML IV SCH (08:21)
[2018-10-23] MEDS: Aspirin Baby 81mg ORAL SCH (08:22)
[2018-10-23 08:48] LABS: ALANINE AMINOTRANSFERASE 25 U/L (12-78); ALBUMIN 2.8 G/DL (3.4-5.0); ALBUMIN/GLOBULIN RATIO 0.7 (1.0-2.7); ALKALINE PHOSPHATASE 65 U/L (46-116); ANION GAP 11 mmol/L (5-15); ASPARTATE AMINO TRANSFERASE 38 U/L (15-37); BILIRUBIN,TOTAL 0.7 MG/DL (0.2-1.0); BLOOD UREA NITROGEN 23 mg/dL (7-18); CALCIUM 9.6 MG/DL (8.5-10.1); CARBON DIOXIDE 25 MMOL/L (21-32); CHLORIDE 111 MMOL/L (98-107); PHOSPHORUS 2.6 MG/DL (2.5-4.9); POTASSIUM 3.9 MMOL/L (3.5-5.1); SODIUM 147 MMOL/L (136-145)
--- NOTE | 2018-10-23 10:19 | NUR ---
NURSE NOTES: Notified Dr. Ny that pt's Na is trending up. New order carried out. Will continue plan of care.
[2018-10-23] MEDS: D5 1/2NS 1,000 ML IV SCH ×2 (10:27→23:40)
--- NOTE | 2018-10-23 10:36 | NUR ---
NURSE NOTES: Checked bilateral heels. Skin intact and no redness noted. Pictures were taken. Will continue plan of care.
--- NOTE | 2018-10-23 10:37 | Infectious Diseases Prog Note ---
Assessment/Plan Assessment/Plan antibiotics : none A 1. encephalopathy 2. renal failure 3. [place] 4. hypertension 5. dementia P 1. continue off antibiotics Subjective ROS Limited/Unobtainable: Yes Allergies: Coded Allergies: EMMETT INHIBITORS (Verified Allergy, Severe, 10/20/18) cough and severe facial swelling Objective Vital Signs Last 24 Hour Vital Signs Date Time Temp Pulse Resp B/P (MAP) Pulse Ox O2 Delivery O2 Flow Rate FiO2 10/23/18 09:00 Room Air 10/23/18 08:22 90 156/75 10/23/18 08:21 90 156/75 10/23/18 08:00 97.7 86 22 154/76 (102) 92 10/23/18 04:06 82 10/23/18 04:00 98.0 78 16 131/54 (79) 94 10/23/18 02:39 102 10/23/18 00:00 98.7 112 18 139/90 (106) 94 10/22/18 21:32 105 124/89 10/22/18 21:00 Room Air 10/22/18 20:00 97.5 105 18 124/89 (101) 96 10/22/18 19:27 105 10/22/18 16:00 97.0 75 16 113/60 (77) 96 10/22/18 16:00 60 10/22/18 15:15 104/60 10/22/18 12:00 94 10/22/18 12:00 97.4 89 16 104/60 (75) 93 10/22/18 11:12 83 155/78 Height (Feet): 5 Height (Inches): 5.00 Weight (Pounds): 150 Respiratory/Chest: lungs clear Cardiovascular: normal rate, regular rhythm, no gallop/murmur Abdomen: soft, non tender Extremities: no edema Laboratory Tests Test 10/22/18 11:10 10/23/18 07:38 10/23/18 07:50 C-Reactive Protein, Quantitative 15.5 mg/dL (0.00-0.90) H White Blood Count 6.0 K/UL (4.8-10.8) Red Blood Count 3.16 M/UL (4.70-6.10) L Hemoglobin 10.4 G/DL (14.2-18.0) L Hematocrit 31.8 % (42.0-52.0) L Mean Corpuscular Volume 101 FL (80-99) H Mean Corpuscular Hemoglobin 33.0 PG (27.0-31.0) H Mean Corpuscular Hemoglobin Concent 32.8 G/DL (32.0-36.0) Red Cell Distribution Width 12.2 % (11.6-14.8) Platelet Count 179 K/UL (150-450) Mean Platelet Volume 6.8 FL (6.5-10.1) Neutrophils (%) (Auto) 73.3 % (45.0-75.0) Lymphocytes (%) (Auto) 16.1 % (20.0-45.0) L Monocytes (%) (Auto) 8.2 % (1.0-10.0) Eosinophils (%) (Auto) 2.0 % (0.0-3.0) Basophils (%) (Auto) 0.5 % (0.0-2.0) Sodium Level 147 MMOL/L (136-145) H Potassium Level 3.9 MMOL/L (3.5-5.1) Chloride Level 111 MMOL/L (98-107) H Carbon Dioxide Level 25 MMOL/L (21-32) Anion Gap 11 mmol/L (5-15) Blood Urea Nitrogen 23 mg/dL (7-18) H Creatinine 2.0 MG/DL (0.55-1.30) H Estimat Glomerular Filtration Rate mL/min (>60) Glucose Level 180 MG/DL (74-106) H Uric Acid 7.5 MG/DL (2.6-7.2) H Calcium Level 9.6 MG/DL (8.5-10.1) Phosphorus Level 2.6 MG/DL (2.5-4.9) Magnesium Level 1.8 MG/DL (1.8-2.4) Total Bilirubin 0.7 MG/DL (0.2-1.0) Aspartate Amino Transf (AST/SGOT) 38 U/L (15-37) H Alanine Aminotransferase (ALT/SGPT) 25 U/L (12-78) Alkaline Phosphatase 65 U/L (46-116) Troponin I 0.203 ng/mL (0.000-0.056) Pro-B-Type Natriuretic Peptide 77211 pg/mL (0-125) H Total Protein 7.0 G/DL (6.4-8.2) Albumin 2.8 G/DL (3.4-5.0) L Globulin 4.2 g/dL Albumin/Globulin Ratio 0.7 (1.0-2.7) L Current Medications Medications (Trade) Dose Ordered Sig/Jamel Route PRN Reason Start Time Stop Time Status Last Admin Dose Admin Acetaminophen (Tylenol) 650 mg Q4H PRN ORAL Mild Pain/Temp > 100.5 10/20/18 14:15 11/19/18 14:14 Amlodipine Besylate (Norvasc) 10 mg DAILY ORAL 10/23/18 09:00 11/22/18 08:59 10/23/18 08:22 Aspirin (ASA) 81 mg DAILY ORAL 10/21/18 09:00 11/20/18 08:59 10/23/18 08:22 Atorvastatin Calcium (Lipitor) 10 mg BEDTIME ORAL 10/22/18 21:00 11/19/18 20:59 10/22/18 21:32 Clonidine HCl (Catapres Tab) 0.1 mg TIDPRN ORAL 10/20/18 20:00 11/19/18 19:59 Dextrose/Sodium Chloride 1,000 ml @ 75 mls/hr [id number] IV 10/23/18 10:20 11/22/18 10:19 10/23/18 10:27 Diphenhydramine HCl (Benadryl) 25 mg Q6H PRN ORAL Itching 10/20/18 14:15 11/19/18 14:14 10/22/18 21:32 Folic Acid (Folate) 5 mg DAILY ORAL 10/22/18 10:45 11/21/18 10:44 10/23/18 08:22 Hydralazine HCl (Apresoline) 25 mg Q4H PRN ORAL bp over 160 syst 10/20/18 14:30 11/19/18 14:29 Metoprolol Tartrate (Lopressor) 25 mg EVERY 12 HOURS ORAL 10/20/18 09:00 11/19/18 08:59 10/23/18 08:21 Nitroglycerin (Ntg) 1 patch Q24H TDERMAL 10/20/18 15:00 11/19/18 14:59 10/22/18 15:15 Pantoprazole (Protonix) 40 mg EVERY 12 HOURS ORAL 10/20/18 21:00 11/19/18 20:59 10/23/18 08:22 Quetiapine Fumarate (SEROquel) 12.5 mg BID ORAL 10/20/18 18:00 11/19/18 17:59 10/23/18 08:21 Tamsulosin HCl (Flomax) 0.4 mg BEDTIME ORAL 10/20/18 21:00 11/19/18 20:59 10/22/18 21:31 Frantz Salinas MD Oct 23, 2018 10:37
--- NOTE | 2018-10-23 10:56 | Nephrology Progress Note ---
Assessment/Plan Problem List: (1) ARF (acute renal failure) Assessment: Cr lower (2) UTI (urinary tract infection) (3) Anemia (4) Dehydration Assessment Acute on chronic renal failure Cr lowering Dehydration Anemia UTI Elevated troponin HTN Dementia Plan Plan: folic acid supplement Hydrate- change to hypotonic orion Flomax Nitropaste ASA BP control per orders Subjective ROS Limited/Unobtainable: No Constitutional: Reports: malaise, weakness Objective Objective Last 24 Hour Vital Signs Date Time Temp Pulse Resp B/P (MAP) Pulse Ox O2 Delivery O2 Flow Rate FiO2 10/23/18 09:00 Room Air 10/23/18 08:22 90 156/75 10/23/18 08:21 90 156/75 10/23/18 08:00 97.7 86 22 154/76 (102) 92 10/23/18 04:06 82 10/23/18 04:00 98.0 78 16 131/54 (79) 94 10/23/18 02:39 102 10/23/18 00:00 98.7 112 18 139/90 (106) 94 10/22/18 21:32 105 124/89 10/22/18 21:00 Room Air 10/22/18 20:00 97.5 105 18 124/89 (101) 96 10/22/18 19:27 105 10/22/18 16:00 97.0 75 16 113/60 (77) 96 10/22/18 16:00 60 10/22/18 15:15 104/60 10/22/18 12:00 94 10/22/18 12:00 97.4 89 16 104/60 (75) 93 10/22/18 11:12 83 155/78 Intake and Output 10/22/18 10/23/18 18:59 06:59 Intake Total 1140 ml Balance 1140 ml Intake Oral 240 ml IV Total 900 ml # Voids 2 3 Laboratory Tests 10/22/18 11:10: C-Reactive Protein, Quantitative 15.5H 10/23/18 07:38: White Blood Count 6.0, Red Blood Count 3.16L, Hemoglobin 10.4L, Hematocrit 31.8L , Mean Corpuscular Volume 101H, Mean Corpuscular Hemoglobin 33.0H, Mean Corpuscular Hemoglobin Concent 32.8, Red Cell Distribution Width 12.2, Platelet Count 179, Mean Platelet Volume 6.8, Neutrophils (%) (Auto) 73.3, Lymphocytes (% ) (Auto) 16.1L, Monocytes (%) (Auto) 8.2, Eosinophils (%) (Auto) 2.0, Basophils (%) (Auto) 0.5 10/23/18 07:50: Sodium Level 147H, Potassium Level 3.9, Chloride Level 111H, Carbon Dioxide Level 25, Anion Gap 11, Blood Urea Nitrogen 23H, Creatinine 2.0H, Estimat Glomerular Filtration Rate , Glucose Level 180H, Uric Acid 7.5H, Calcium Level 9.6, Phosphorus Level 2.6, Magnesium Level 1.8, Total Bilirubin 0.7, Aspartate Amino Transf (AST/SGOT) 38H, Alanine Aminotransferase (ALT/SGPT) 25, Alkaline Phosphatase 65, Troponin I 0.203H, Pro-B-Type Natriuretic Peptide 50601J, Total Protein 7.0, Albumin 2.8L, Globulin 4.2, Albumin/Globulin Ratio 0.7L Height (Feet): 5 Height (Inches): 5.00 Weight (Pounds): 150 General Appearance: no apparent distress Objective no change aWllace Ny MD Oct 23, 2018 10:56
[2018-10-23 12:00] VITALS: BP 102/73
[2018-10-23] MEDS: Nitroglycerin Patch 0.4mg TDERMAL SCH (14:19)
--- NOTE | 2018-10-23 14:32 | General Progress Note ---
Assessment/Plan Problem List: (1) Encephalopathy acute ICD Codes: G93.40 - Encephalopathy, unspecified SNOMED: 64524896, 210014782 (2) UTI (urinary tract infection) ICD Codes: N39.0 - Urinary tract infection, site not specified SNOMED: 17297063, 661107221 Qualifiers: Qualified Codes: N30.00 - Acute cystitis without hematuria (3) ARF (acute renal failure) ICD Codes: N17.9 - Acute kidney failure, unspecified SNOMED: 19009719 Qualifiers: Qualified Codes: N17.9 - Acute kidney failure, unspecified (4) Dehydration ICD Codes: E86.0 - Dehydration SNOMED: 24392578 Status: progressing Assessment/Plan confused clinically improving no fever uti dehydration reviewed chart and labs Subjective ROS Limited/Unobtainable: Yes Allergies: Coded Allergies: EMMETT INHIBITORS (Verified Allergy, Severe, 10/20/18) cough and severe facial swelling Objective Last 24 Hour Vital Signs Date Time Temp Pulse Resp B/P (MAP) Pulse Ox O2 Delivery O2 Flow Rate FiO2 10/23/18 14:19 131/55 10/23/18 12:00 74 10/23/18 12:00 98.6 76 20 102/73 (83) 98 10/23/18 09:00 Room Air 10/23/18 08:22 90 156/75 10/23/18 08:21 90 156/75 10/23/18 08:00 81 10/23/18 08:00 97.7 86 22 154/76 (102) 92 10/23/18 04:06 82 10/23/18 04:00 98.0 78 16 131/54 (79) 94 10/23/18 02:39 102 10/23/18 00:00 98.7 112 18 139/90 (106) 94 10/22/18 21:32 105 124/89 10/22/18 21:00 Room Air 10/22/18 20:00 97.5 105 18 124/89 (101) 96 10/22/18 19:27 105 10/22/18 16:00 97.0 75 16 113/60 (77) 96 10/22/18 16:00 60 10/22/18 15:15 104/60 Intake and Output 10/22/18 10/23/18 18:59 06:59 Intake Total 1140 ml Balance 1140 ml Intake Oral 240 ml IV Total 900 ml # Voids 2 3 Laboratory Tests 10/23/18 07:38: White Blood Count 6.0, Red Blood Count 3.16L, Hemoglobin 10.4L, Hematocrit 31.8L , Mean Corpuscular Volume 101H, Mean Corpuscular Hemoglobin 33.0H, Mean Corpuscular Hemoglobin Concent 32.8, Red Cell Distribution Width 12.2, Platelet Count 179, Mean Platelet Volume 6.8, Neutrophils (%) (Auto) 73.3, Lymphocytes (% ) (Auto) 16.1L, Monocytes (%) (Auto) 8.2, Eosinophils (%) (Auto) 2.0, Basophils (%) (Auto) 0.5 10/23/18 07:50: Sodium Level 147H, Potassium Level 3.9, Chloride Level 111H, Carbon Dioxide Level 25, Anion Gap 11, Blood Urea Nitrogen 23H, Creatinine 2.0H, Estimat Glomerular Filtration Rate , Glucose Level 180H, Uric Acid 7.5H, Calcium Level 9.6, Phosphorus Level 2.6, Magnesium Level 1.8, Total Bilirubin 0.7, Aspartate Amino Transf (AST/SGOT) 38H, Alanine Aminotransferase (ALT/SGPT) 25, Alkaline Phosphatase 65, Troponin I 0.203H, Pro-B-Type Natriuretic Peptide 49035P, Total Protein 7.0, Albumin 2.8L, Globulin 4.2, Albumin/Globulin Ratio 0.7L Height (Feet): 5 Height (Inches): 5.00 Weight (Pounds): 150 General Appearance: confused Neck: supple Cardiovascular: normal rate Respiratory/Chest: lungs clear Abdomen: soft Raquel Mendoza MD Oct 23, 2018 14:31
[2018-10-23 16:00] VITALS: BP 140/62
--- NOTE | 2018-10-23 19:15 | NUR ---
HAND-OFF: Report given to BRANT Clarke. Patient is in stable condition. Endorsed plan of care.
--- NOTE | 2018-10-23 19:20 | NUR ---
NURSE NOTES: Received pt from BRANT Clarke. Pt awake but responses are incompehensible. Bed in lowest position. Bed alarm on. Call light within reach. Will continue to monitor.
[2018-10-23 20:00] VITALS: BP 138/65
--- NOTE | 2018-10-23 20:19 | General Progress Note ---
Assessment/Plan Assessment/Plan Assessment and Recs: # Anemia of chronic disease with a hx of levi on ckd --> Anemia workup has been ordered --> No evidence of hemolysis is noted, peripheral smear has been reviewed. --> Hgb goal >7. Transfuse prn. --> Epogen or iron at this time is not particularly indicated --> Medications have been reviewed # Thrombocytopenia -- plts 130-200k --> hepatitis and hiv order if plts going down --> us abd to be ordered as well if plt downtrends # ACS (acute coronary syndrome) -- troponin is elevated. He may have a non- STEMI --> asa and lovenox were given --> cardiology recs appreciated # UTI (urinary tract infection) --> on abx as per id # LEVI on Ckd --> as per renal # Proteinuria # Encephalopathy acute The timing of this note does not necessarily reflect the time of the patient was seen Greatly appreciate consultation! Subjective Constitutional: Denies: no symptoms, chills, diaphoresis, fever, malaise, weakness, other HEENT: Denies: no symptoms, eye pain, blurred vision, tearing, double vision, ear pain, ear discharge, nose pain, nose congestion, throat pain, throat swelling, mouth pain, mouth swelling, other Cardiovascular: Denies: no symptoms, chest pain, edema, irregular heart rate, lightheadedness, palpitations, syncope, other Respiratory: Denies: no symptoms, cough, orthopnea, shortness of breath, SOB with excertion, SOB at rest, sputum, stridor, wheezing, other Gastrointestinal/Abdominal: Denies: no symptoms, abdomen distended, abdominal pain, black stools, tarry stools, blood in stool, constipated, diarrhea, difficulty swallowing, nausea, poor appetite, poor fluid intake, rectal bleeding , vomiting, other Genitourinary: Denies: no symptoms, burning, discharge, frequency, flank pain, hematuria, incontinence, pain, urgency, other Neurologic/Psychiatric: Denies: no symptoms, anxiety, depressed, emotional problems, headache, numbness, paresthesia, pre-existing deficit, seizure, tingling, tremors, weakness, other Endocrine: Denies: no symptoms, excessive sweating, flushing, intolerance to cold, intolerance to heat, increased hunger, increased thirst, increased urine, unexplained weight gain, unexplained weight loss, other Hematologic/Lymphatic: Denies: no symptoms, anemia, easy bleeding, easy bruising, other Allergies: Coded Allergies: EMMETT INHIBITORS (Verified Allergy, Severe, 10/20/18) cough and severe facial swelling Subjective 10/23: seen by bedside, awake, comfortable, no events. Objective Last 24 Hour Vital Signs Date Time Temp Pulse Resp B/P (MAP) Pulse Ox O2 Delivery O2 Flow Rate FiO2 10/23/18 20:00 97.8 65 20 138/65 (89) 98 10/23/18 16:00 98.3 81 20 140/62 (88) 100 10/23/18 16:00 59 10/23/18 14:19 131/55 10/23/18 12:00 74 10/23/18 12:00 98.6 76 20 102/73 (83) 98 10/23/18 09:00 Room Air 10/23/18 08:22 90 156/75 10/23/18 08:21 90 156/75 10/23/18 08:00 81 10/23/18 08:00 97.7 86 22 154/76 (102) 92 10/23/18 04:06 82 10/23/18 04:00 98.0 78 16 131/54 (79) 94 10/23/18 02:39 102 10/23/18 00:00 98.7 112 18 139/90 (106) 94 10/22/18 21:32 105 124/89 10/22/18 21:00 Room Air Intake and Output 10/22/18 10/23/18 19:00 07:00 Intake Total 1140 ml Balance 1140 ml Intake Oral 240 ml IV Total 900 ml # Voids 2 3 Laboratory Tests 10/23/18 07:38: White Blood Count 6.0, Red Blood Count 3.16L, Hemoglobin 10.4L, Hematocrit 31.8L , Mean Corpuscular Volume 101H, Mean Corpuscular Hemoglobin 33.0H, Mean Corpuscular Hemoglobin Concent 32.8, Red Cell Distribution Width 12.2, Platelet Count 179, Mean Platelet Volume 6.8, Neutrophils (%) (Auto) 73.3, Lymphocytes (% ) (Auto) 16.1L, Monocytes (%) (Auto) 8.2, Eosinophils (%) (Auto) 2.0, Basophils (%) (Auto) 0.5 10/23/18 07:50: Sodium Level 147H, Potassium Level 3.9, Chloride Level 111H, Carbon Dioxide Level 25, Anion Gap 11, Blood Urea Nitrogen 23H, Creatinine 2.0H, Estimat Glomerular Filtration Rate , Glucose Level 180H, Uric Acid 7.5H, Calcium Level 9.6, Phosphorus Level 2.6, Magnesium Level 1.8, Total Bilirubin 0.7, Aspartate Amino Transf (AST/SGOT) 38H, Alanine Aminotransferase (ALT/SGPT) 25, Alkaline Phosphatase 65, Troponin I 0.203H, Pro-B-Type Natriuretic Peptide 81029S, Total Protein 7.0, Albumin 2.8L, Globulin 4.2, Albumin/Globulin Ratio 0.7L Height (Feet): 5 Height (Inches): 5.00 Weight (Pounds): 150 Objective Physical Exam General Appearance: A+O x3, NAD HEENT: normocephalic, atraumatic Neck: non-tender, normal alignment Respiratory/Chest: chest wall non-tender, lungs clear Cardiovascular/Chest: normal peripheral pulses, normal rate Abdomen: normal bowel sounds, non tender Extremities: normal range of motion Shamir Mendez MD Oct 23, 2018 20:19
[2018-10-23] MEDS: Tamsulosin 0.4mg cap ORAL SCH (20:59)
--- NOTE | 2018-10-23 23:13 | Cardiology Progress Note ---
Assessment/Plan Assessment/Plan 1. Slight elevation of troponin I level due to [id number] myocardial infarction type 2 versus elevated troponin level due to chronic kidney disease, continue aspirin, atorvastatin and metoprolol, normal LV systolic function with LVEF at 55%. 2. Hypertension, well controlled, continue amlodipine and metoprolol. 3. LEVI, creatinine is downtrending. 4. Altered level of consciousness. Subjective Subjective Sinus rhythm at rate of 65. Objective Last 24 Hour Vital Signs Date Time Temp Pulse Resp B/P (MAP) Pulse Ox O2 Delivery O2 Flow Rate FiO2 10/23/18 20:59 65 138/65 10/23/18 20:00 97.8 65 20 138/65 (89) 98 10/23/18 16:00 98.3 81 20 140/62 (88) 100 10/23/18 16:00 59 10/23/18 14:19 131/55 10/23/18 12:00 74 10/23/18 12:00 98.6 76 20 102/73 (83) 98 10/23/18 09:00 Room Air 10/23/18 08:22 90 156/75 10/23/18 08:21 90 156/75 10/23/18 08:00 81 10/23/18 08:00 97.7 86 22 154/76 (102) 92 10/23/18 04:06 82 10/23/18 04:00 98.0 78 16 131/54 (79) 94 10/23/18 02:39 102 10/23/18 00:00 98.7 112 18 139/90 (106) 94 Intake and Output 10/22/18 10/23/18 19:00 07:00 Intake Total 1140 ml Balance 1140 ml Intake Oral 240 ml IV Total 900 ml # Voids 2 3 2D Echo: LVEF 55%, Mod LVH, Mod LAE, RVSP 14mmHg, Mod AR/MR, Grade I LVDD Laboratory Tests Test 10/23/18 07:38 10/23/18 07:50 White Blood Count 6.0 K/UL (4.8-10.8) Red Blood Count 3.16 M/UL (4.70-6.10) L Hemoglobin 10.4 G/DL (14.2-18.0) L Hematocrit 31.8 % (42.0-52.0) L Mean Corpuscular Volume 101 FL (80-99) H Mean Corpuscular Hemoglobin 33.0 PG (27.0-31.0) H Mean Corpuscular Hemoglobin Concent 32.8 G/DL (32.0-36.0) Red Cell Distribution Width 12.2 % (11.6-14.8) Platelet Count 179 K/UL (150-450) Mean Platelet Volume 6.8 FL (6.5-10.1) Neutrophils (%) (Auto) 73.3 % (45.0-75.0) Lymphocytes (%) (Auto) 16.1 % (20.0-45.0) L Monocytes (%) (Auto) 8.2 % (1.0-10.0) Eosinophils (%) (Auto) 2.0 % (0.0-3.0) Basophils (%) (Auto) 0.5 % (0.0-2.0) Sodium Level 147 MMOL/L (136-145) H Potassium Level 3.9 MMOL/L (3.5-5.1) Chloride Level 111 MMOL/L (98-107) H Carbon Dioxide Level 25 MMOL/L (21-32) Anion Gap 11 mmol/L (5-15) Blood Urea Nitrogen 23 mg/dL (7-18) H Creatinine 2.0 MG/DL (0.55-1.30) H Estimat Glomerular Filtration Rate mL/min (>60) Glucose Level 180 MG/DL (74-106) H Uric Acid 7.5 MG/DL (2.6-7.2) H Calcium Level 9.6 MG/DL (8.5-10.1) Phosphorus Level 2.6 MG/DL (2.5-4.9) Magnesium Level 1.8 MG/DL (1.8-2.4) Total Bilirubin 0.7 MG/DL (0.2-1.0) Aspartate Amino Transf (AST/SGOT) 38 U/L (15-37) H Alanine Aminotransferase (ALT/SGPT) 25 U/L (12-78) Alkaline Phosphatase 65 U/L (46-116) Troponin I 0.203 ng/mL (0.000-0.056) Pro-B-Type Natriuretic Peptide 66904 pg/mL (0-125) H Total Protein 7.0 G/DL (6.4-8.2) Albumin 2.8 G/DL (3.4-5.0) L Globulin 4.2 g/dL Albumin/Globulin Ratio 0.7 (1.0-2.7) L Objective HEENT: Atraumatic and normocephalic. Anicteric. Pupils are equal, round, and reactive to light and accommodation. Extraocular muscles intact. NECK: JVP less than 5 cm. No carotid bruit. Carotid upstrokes 2+ bilaterally. CARDIOVASCULAR SYSTEM: Normal S1, S2. Regular rate and rhythm. No murmurs, gallops, or rubs. PMI is at fourth intercostal space at the midclavicular line. LUNGS: Clear to auscultation bilaterally. ABDOMEN: Soft, nontender, and nondistended. No hepatosplenomegaly. Positive bowel sounds. EXTREMITIES: No evidence of edema, clubbing, or cyanosis. Both upper extremity skin shows evidence of large ecchymosis in both forearms. Chris Garcia MD Oct 23, 2018 23:13
[2018-10-24] VITALS: BP 129/63
[2018-10-24 04:00] VITALS: BP 119/74
--- NOTE | 2018-10-24 07:49 | NUR ---
NURSE NOTES: Received report from BRANT Mora. Patient is in stable condition. No acute distress/SOB noted. Will continue plan of care.
--- NOTE | 2018-10-24 07:49 | NUR ---
HAND-OFF: Report given to BRANT Deleon. Pt stable.
[2018-10-24 08:00] VITALS: BP 144/84
[2018-10-24] MEDS: Metoprolol 25mg tab ORAL SCH ×2 (08:19→21:30)
[2018-10-24] MEDS: Aspirin Baby 81mg ORAL SCH (08:19)
--- NOTE | 2018-10-24 10:16 | Infectious Diseases Prog Note ---
Assessment/Plan Assessment/Plan IMPRESSION: 1. Altered mental status, encephalopathy 2. Elevated troponin likely non-ST myocardial infarction. 3. Acute renal failure. 4. Dementia. 5. Hypertension. 6. DNR status RECOMMENDATION: Observe off antibiotic Subjective Allergies: Coded Allergies: EMMETT INHIBITORS (Verified Allergy, Severe, 10/20/18) cough and severe facial swelling Objective Vital Signs Last 24 Hour Vital Signs Date Time Temp Pulse Resp B/P (MAP) Pulse Ox O2 Delivery O2 Flow Rate FiO2 10/24/18 09:00 Room Air 10/24/18 08:19 66 144/84 10/24/18 08:19 66 144/84 10/24/18 08:00 97.5 66 18 144/84 (104) 100 10/24/18 04:00 77 10/24/18 04:00 97.1 77 18 119/74 (89) 99 10/24/18 00:00 58 10/24/18 00:00 98.2 64 20 129/63 (85) 98 10/23/18 21:00 Room Air 10/23/18 20:59 65 138/65 10/23/18 20:00 63 10/23/18 20:00 97.8 65 20 138/65 (89) 98 10/23/18 16:00 98.3 81 20 140/62 (88) 100 10/23/18 16:00 59 10/23/18 14:19 131/55 10/23/18 12:00 74 10/23/18 12:00 98.6 76 20 102/73 (83) 98 Height (Feet): 5 Height (Inches): 5.00 Weight (Pounds): 150 General Appearance: no acute distress HEENT: mucous membranes moist Respiratory/Chest: lungs clear Cardiovascular: normal rate Abdomen: soft, non tender Extremities: no edema Neurologic/Psychiatric: alert Current Medications Medications (Trade) Dose Ordered Sig/Jamel Route PRN Reason Start Time Stop Time Status Last Admin Dose Admin Acetaminophen (Tylenol) 650 mg Q4H PRN ORAL Mild Pain/Temp > 100.5 10/20/18 14:15 11/19/18 14:14 10/23/18 20:59 Amlodipine Besylate (Norvasc) 10 mg DAILY ORAL 10/23/18 09:00 11/22/18 08:59 10/24/18 08:19 Aspirin (ASA) 81 mg DAILY ORAL 10/21/18 09:00 11/20/18 08:59 10/24/18 08:19 Atorvastatin Calcium (Lipitor) 10 mg BEDTIME ORAL 10/22/18 21:00 11/19/18 20:59 10/23/18 20:59 Clonidine HCl (Catapres Tab) 0.1 mg TIDPRN ORAL 10/20/18 20:00 11/19/18 19:59 Dextrose/Sodium Chloride 1,000 ml @ 75 mls/hr [id number] IV 10/23/18 10:20 11/22/18 10:19 10/23/18 23:40 Diphenhydramine HCl (Benadryl) 25 mg Q6H PRN ORAL Itching 10/20/18 14:15 11/19/18 14:14 10/22/18 21:32 Folic Acid (Folate) 5 mg DAILY ORAL 10/22/18 10:45 11/21/18 10:44 10/24/18 08:19 Hydralazine HCl (Apresoline) 25 mg Q4H PRN ORAL bp over 160 syst 10/20/18 14:30 11/19/18 14:29 Metoprolol Tartrate (Lopressor) 25 mg EVERY 12 HOURS ORAL 10/20/18 09:00 11/19/18 08:59 10/24/18 08:19 Nitroglycerin (Ntg) 1 patch Q24H TDERMAL 10/20/18 15:00 11/19/18 14:59 10/23/18 14:19 Pantoprazole (Protonix) 40 mg EVERY 12 HOURS ORAL 10/20/18 21:00 11/19/18 20:59 10/24/18 08:19 Quetiapine Fumarate (SEROquel) 12.5 mg BID ORAL 10/20/18 18:00 11/19/18 17:59 10/24/18 08:19 Tamsulosin HCl (Flomax) 0.4 mg BEDTIME ORAL 10/20/18 21:00 11/19/18 20:59 10/23/18 20:59 Bret Lilly MD Oct 24, 2018 10:16
--- NOTE | 2018-10-24 11:20 | Cardiology Report ---
APPROVED REPORT EKG Measurement Heart [id number] IA 178P-5 [id number] Sinus rhythm with premature atrial complexes Nonspecific ST and T wave abnormality Prolonged QT Abnormal ECG
[2018-10-24 12:00] VITALS: BP 120/75
--- NOTE | 2018-10-24 12:13 | Cardiology Report ---
APPROVED REPORT EXAM: Two-dimensional and M-mode echocardiogram with Doppler and color Doppler. INDICATION Left ventricular function M-Mode DIMENSIONS IVSd1.4 (0.7-1.1cm)Left Atrium (MM)4.8 (1.6-4.0cm) LVDd4.7 (3.5-5.6cm)Aortic Root3.4 (2.0-3.7cm) PWd1.1 (0.7-1.1cm)Aortic Cusp Exc.2.0 (1.5-2.0cm) LVDs3.3 (2.5-4.0cm) PWs1.2 cm Technically difficult study due to poor acoustical windows. Normal left ventricular chamber size, systolic function and wall motion to extent visualized. Left ventricular ejection fraction estimated to be 55 %. Moderate left ventricular hypertrophy by 2D. No evidence of pericardial effusion Moderate left atrial enlargement. Right atrial size at upper limits of normal. Right ventricular chamber size is within normal limits. Focal aortic valve sclerosis with adequate cusp excursion. Thickened mitral valve leaflets with normal excursion. Mitral annulus and aortic root calcification. Pulmonic valve not well visualized. Normal tricuspid valve structure. IVC dilated at 2.4 cm with slight physiologic collapse suggestive of increased RA pressure. A color flow and spectral Doppler study was performed and revealed: Moderate aortic regurgitation. Moderate mitral regurgitation. Mitral diastolic velocities suggest reduced left ventricular relaxation c/w mild LV diastolic dysfunction (Grade I). Trace tricuspid regurgitation. Tricuspid systolic velocities suggests peak right ventricular systolic pressure of 23 mmHg Pulmonic regurgitation present.
[2018-10-24] MEDS: D5 1/2NS 1,000 ML IV SCH (12:34)
--- NOTE | 2018-10-24 12:44 | General Progress Note ---
Assessment/Plan Problem List: (1) Encephalopathy acute ICD Codes: G93.40 - Encephalopathy, unspecified SNOMED: 42075949, 338353318 (2) UTI (urinary tract infection) ICD Codes: N39.0 - Urinary tract infection, site not specified SNOMED: 38487018, 404554178 Qualifiers: Qualified Codes: N30.00 - Acute cystitis without hematuria (3) ARF (acute renal failure) ICD Codes: N17.9 - Acute kidney failure, unspecified SNOMED: 63140588 Qualifiers: Qualified Codes: N17.9 - Acute kidney failure, unspecified (4) Dehydration ICD Codes: E86.0 - Dehydration SNOMED: 58132493 Status: progressing Assessment/Plan no change no acute events uti improving dehydration reviewed chart and labs Subjective ROS Limited/Unobtainable: Yes Allergies: Coded Allergies: EMMETT INHIBITORS (Verified Allergy, Severe, 10/20/18) cough and severe facial swelling Objective Last 24 Hour Vital Signs Date Time Temp Pulse Resp B/P (MAP) Pulse Ox O2 Delivery O2 Flow Rate FiO2 10/24/18 09:00 Room Air 10/24/18 08:19 66 144/84 10/24/18 08:19 66 144/84 10/24/18 08:00 97.5 66 18 144/84 (104) 100 10/24/18 08:00 65 10/24/18 04:00 77 10/24/18 04:00 97.1 77 18 119/74 (89) 99 10/24/18 00:00 58 10/24/18 00:00 98.2 64 20 129/63 (85) 98 10/23/18 21:00 Room Air 10/23/18 20:59 65 138/65 10/23/18 20:00 63 10/23/18 20:00 97.8 65 20 138/65 (89) 98 10/23/18 16:00 98.3 81 20 140/62 (88) 100 10/23/18 16:00 59 10/23/18 14:19 131/55 Intake and Output 10/23/18 10/24/18 18:59 06:59 # Voids 4 2 Height (Feet): 5 Height (Inches): 5.00 Weight (Pounds): 150 General Appearance: confused Cardiovascular: normal rate Respiratory/Chest: chest wall non-tender Raquel Mendoza MD Oct 24, 2018 12:44
[2018-10-24] MEDS: Nitroglycerin Patch 0.4mg TDERMAL SCH (15:03)
[2018-10-24 16:00] VITALS: BP 136/66
--- NOTE | 2018-10-24 16:38 | Cardiology Progress Note ---
Assessment/Plan Assessment/Plan 1. Slight elevation of troponin I level due to [id number] myocardial infarction type 2 versus elevated troponin level due to chronic kidney disease, continue aspirin, atorvastatin and metoprolol, normal LV systolic function with LVEF at 55%. 2. Hypertension, well controlled, continue amlodipine and metoprolol. 3. LEVI, creatinine not checked today. Subjective Subjective Sinus rhythm at rate of 78. Objective Last 24 Hour Vital Signs Date Time Temp Pulse Resp B/P (MAP) Pulse Ox O2 Delivery O2 Flow Rate FiO2 10/24/18 16:00 97.5 78 20 136/66 (89) 98 10/24/18 15:03 120/75 10/24/18 12:00 97.5 69 18 120/75 (90) 100 10/24/18 12:00 69 10/24/18 09:00 Room Air 10/24/18 08:19 66 144/84 10/24/18 08:19 66 144/84 10/24/18 08:00 97.5 66 18 144/84 (104) 100 10/24/18 08:00 65 10/24/18 04:00 77 10/24/18 04:00 97.1 77 18 119/74 (89) 99 10/24/18 00:00 58 10/24/18 00:00 98.2 64 20 129/63 (85) 98 10/23/18 21:00 Room Air 10/23/18 20:59 65 138/65 10/23/18 20:00 63 10/23/18 20:00 97.8 65 20 138/65 (89) 98 Intake and Output 10/23/18 10/24/18 18:59 06:59 # Voids 4 2 2D Echo: LVEF 55%, Mod LVH, Mod LAE, RVSP 14mmHg, Mod AR/MR, Grade I LVDD Objective HEENT: Atraumatic and normocephalic. Anicteric. Pupils are equal, round, and reactive to light and accommodation. Extraocular muscles intact. NECK: JVP less than 5 cm. No carotid bruit. Carotid upstrokes 2+ bilaterally. CARDIOVASCULAR SYSTEM: Normal S1, S2. Regular rate and rhythm. No murmurs, gallops, or rubs. PMI is at fourth intercostal space at the midclavicular line. LUNGS: Clear to auscultation bilaterally. ABDOMEN: Soft, nontender, and nondistended. No hepatosplenomegaly. Positive bowel sounds. EXTREMITIES: No evidence of edema, clubbing, or cyanosis. Both upper extremity skin shows evidence of large ecchymosis in both forearms. Chris Garcia MD Oct 24, 2018 16:38
--- NOTE | 2018-10-24 18:26 | Nephrology Progress Note ---
Assessment/Plan Problem List: (1) ARF (acute renal failure) Assessment: Cr lower (2) UTI (urinary tract infection) (3) Anemia (4) Dehydration Assessment Acute on chronic renal failure Cr lowering Dehydration Anemia UTI Elevated troponin HTN Dementia Plan Plan: no labs today folic acid supplement Hydrate- change to hypotonic orion Flomax Nitropaste ASA BP control per orders Subjective ROS Limited/Unobtainable: No Constitutional: Reports: malaise Objective Objective Last 24 Hour Vital Signs Date Time Temp Pulse Resp B/P (MAP) Pulse Ox O2 Delivery O2 Flow Rate FiO2 10/24/18 16:00 66 10/24/18 16:00 97.5 78 20 136/66 (89) 98 10/24/18 15:03 120/75 10/24/18 12:00 97.5 69 18 120/75 (90) 100 10/24/18 12:00 69 10/24/18 09:00 Room Air 10/24/18 08:19 66 144/84 10/24/18 08:19 66 144/84 10/24/18 08:00 97.5 66 18 144/84 (104) 100 10/24/18 08:00 65 10/24/18 04:00 77 10/24/18 04:00 97.1 77 18 119/74 (89) 99 10/24/18 00:00 58 10/24/18 00:00 98.2 64 20 129/63 (85) 98 10/23/18 21:00 Room Air 10/23/18 20:59 65 138/65 10/23/18 20:00 63 10/23/18 20:00 97.8 65 20 138/65 (89) 98 Intake and Output 10/23/18 10/24/18 18:59 06:59 # Voids 4 2 Height (Feet): 5 Height (Inches): 5.00 Weight (Pounds): 150 General Appearance: no apparent distress Objective no change Wallace Ny MD Oct 24, 2018 18:26
[2018-10-24] MEDS ORDERED: Miralax 17gm pkt ORAL PRN (18:30)
--- NOTE | 2018-10-24 18:36 | NUR ---
NURSE NOTES: Talked with Dr. Mendoza that pt has not have BM since admitted. New orders carried out. Will continue plan of care.
[2018-10-24] MEDS: Milk of Magnesia 30ml Ud ORAL PRN (18:43)
--- NOTE | 2018-10-24 18:44 | NUR ---
NURSE NOTES: Bisacodyl 10mg and MOM 30cc was given at the same time as ordered.
[2018-10-24] MEDS ORDERED: Bisacodyl EC 5mg tab ORAL PRN (18:45)
--- NOTE | 2018-10-24 19:12 | NUR ---
HAND-OFF: Report given to BRANT Stovall. Patient is in stable condition. No acute distress/SOB noted. Endorsed plan of care.
--- NOTE | 2018-10-24 19:21 | NUR ---
NURSE NOTES: Report received from BRANT Deleon. Pt is lying comfortably in semi-fowlers with no signs of distress. Pt A+Ox1 and shows no signs of pain/SOB. IV site is patent, intact, and running fluids at prescribed rate. Respirations are even and unlabored on room air. Bed is at lowest position, brakes engaged, bed alarm on, siderails x2, and call light within reach. Pt is in stable condition at this time; will continue to monitor.
[2018-10-24 20:00] VITALS: BP 149/74
[2018-10-24] MEDS: Tamsulosin 0.4mg cap ORAL SCH (21:30)
[2018-10-25] VITALS: BP 123/50
[2018-10-25] MEDS: D5 1/2NS 1,000 ML IV SCH ×2 (02:34→16:00)
[2018-10-25 04:00] VITALS: BP 108/81
[2018-10-25 07:18] LABS: BASOPHILS % (AUTO) 0.4 % (0.0-2.0); EOSINOPHILS % (AUTO) 2.1 % (0.0-3.0); HEMATOCRIT 30.2 % (42.0-52.0); HEMOGLOBIN 9.9 G/DL (14.2-18.0); LYMPHOCYTES % (AUTO) 11.7 % (20.0-45.0); MEAN CORPUSCULAR VOLUME 100 FL (80-99); MONOCYTES % (AUTO) 7.1 % (1.0-10.0); NEUTROPHILS % (AUTO) 78.6 % (45.0-75.0); PLATELET COUNT 167 K/UL (150-450); RED BLOOD COUNT 3.03 M/UL (4.70-6.10); RED CELL DISTRIBUTION WIDTH 11.9 % (11.6-14.8); WHITE BLOOD COUNT 4.9 K/UL (4.8-10.8)
--- NOTE | 2018-10-25 07:26 | NUR ---
HAND-OFF: Report given to BRANT Corona. Pt is in stable condition; plan of care endorsed.
--- NOTE | 2018-10-25 07:28 | NUR ---
NURSE NOTES: Received report from BRANT Mckenzie. Patient in bed resting. Patient on oxygen room air. AO x1. No active s/s cardiac, respiratory distress noticed at this time. Denies pain at this time. IV running at prescribed rate, IV site asymptomatic, intact, patent. Bed in lowest position, side rails up x3, call light within reach. Will continue to monitor.
[2018-10-25 07:30] LABS: ALANINE AMINOTRANSFERASE 22 U/L (12-78); ALBUMIN 2.5 G/DL (3.4-5.0); ALBUMIN/GLOBULIN RATIO 0.7 (1.0-2.7); ALKALINE PHOSPHATASE 59 U/L (46-116); ANION GAP 9 mmol/L (5-15); ASPARTATE AMINO TRANSFERASE 28 U/L (15-37); BILIRUBIN,TOTAL 0.5 MG/DL (0.2-1.0); BLOOD UREA NITROGEN 16 mg/dL (7-18); CALCIUM 9.1 MG/DL (8.5-10.1); CARBON DIOXIDE 26 MMOL/L (21-32); CHLORIDE 112 MMOL/L (98-107); CREATININE 1.7 MG/DL (0.55-1.30); POTASSIUM 3.8 MMOL/L (3.5-5.1); SODIUM 147 MMOL/L (136-145)
[2018-10-25 08:00] VITALS: BP 140/71
[2018-10-25 08:07] LABS: PHOSPHORUS 2.2 MG/DL (2.5-4.9)
[2018-10-25] MEDS: Aspirin Baby 81mg ORAL SCH (08:42)
[2018-10-25] MEDS: Docusate 100mg cap ORAL SCH (08:42)
[2018-10-25] MEDS: Metoprolol 25mg tab ORAL SCH ×2 (08:50→21:36)
--- NOTE | 2018-10-25 09:00 | NUR ---
NURSE NOTES: Per Dr. Mendoza patient transferred to [facility] under Dr. Ramos, continue hospital medication, discontinue all home medication, and discontinue D5 1/2 NS.
--- NOTE | 2018-10-25 10:01 | NUR ---
*-* DISCHARGE PLANNING *-* PATIENT HAS BEEN REFERRED BACK TO: [facility] P:[phone] F:[phone]
--- NOTE | 2018-10-25 11:30 | NUR ---
NURSE NOTES: Patient's family member refuse patient to be transferred to [facility]. [facility] member [facility] or [facility]. Paged Dr. Mendoza for request. Awaiting for call back.
--- NOTE | 2018-10-25 11:41 | Infectious Diseases Prog Note ---
Assessment/Plan Assessment/Plan IMPRESSION: 1. Altered mental status, encephalopathy 2. Elevated troponin likely non-ST myocardial infarction. 3. Acute renal failure. 4. Dementia. 5. Hypertension. 6. DNR status RECOMMENDATION: Observe off antibiotic Subjective ROS Limited/Unobtainable: Yes Allergies: Coded Allergies: EMMETT INHIBITORS (Verified Allergy, Severe, 10/20/18) cough and severe facial swelling Objective Vital Signs Last 24 Hour Vital Signs Date Time Temp Pulse Resp B/P (MAP) Pulse Ox O2 Delivery O2 Flow Rate FiO2 10/25/18 08:50 68 151/64 10/25/18 08:49 68 151/64 10/25/18 04:00 98.1 82 18 108/81 (90) 96 10/25/18 04:00 82 10/25/18 00:00 56 10/25/18 00:00 98.3 57 19 123/50 (74) 98 10/24/18 21:30 81 149/74 10/24/18 21:00 Room Air 10/24/18 20:00 98.6 81 18 149/74 (99) 98 10/24/18 20:00 80 10/24/18 16:00 66 10/24/18 16:00 97.5 78 20 136/66 (89) 98 10/24/18 15:03 120/75 10/24/18 12:00 97.5 69 18 120/75 (90) 100 10/24/18 12:00 69 Height (Feet): 5 Height (Inches): 5.00 Weight (Pounds): 150 General Appearance: no acute distress HEENT: mucous membranes moist Respiratory/Chest: lungs clear Cardiovascular: normal rate Abdomen: soft, non tender Extremities: no edema Neurologic/Psychiatric: other - sleeping Laboratory Tests Test 10/25/18 05:50 White Blood Count 4.9 K/UL (4.8-10.8) Red Blood Count 3.03 M/UL (4.70-6.10) L Hemoglobin 9.9 G/DL (14.2-18.0) L Hematocrit 30.2 % (42.0-52.0) L Mean Corpuscular Volume 100 FL (80-99) H Mean Corpuscular Hemoglobin 32.8 PG (27.0-31.0) H Mean Corpuscular Hemoglobin Concent 32.9 G/DL (32.0-36.0) Red Cell Distribution Width 11.9 % (11.6-14.8) Platelet Count 167 K/UL (150-450) Mean Platelet Volume 7.0 FL (6.5-10.1) Neutrophils (%) (Auto) 78.6 % (45.0-75.0) H Lymphocytes (%) (Auto) 11.7 % (20.0-45.0) L Monocytes (%) (Auto) 7.1 % (1.0-10.0) Eosinophils (%) (Auto) 2.1 % (0.0-3.0) Basophils (%) (Auto) 0.4 % (0.0-2.0) Sodium Level 147 MMOL/L (136-145) H Potassium Level 3.8 MMOL/L (3.5-5.1) Chloride Level 112 MMOL/L (98-107) H Carbon Dioxide Level 26 MMOL/L (21-32) Anion Gap 9 mmol/L (5-15) Blood Urea Nitrogen 16 mg/dL (7-18) Creatinine 1.7 MG/DL (0.55-1.30) H Estimat Glomerular Filtration Rate mL/min (>60) Glucose Level 165 MG/DL (74-106) H Calcium Level 9.1 MG/DL (8.5-10.1) Phosphorus Level 2.2 MG/DL (2.5-4.9) L Magnesium Level 1.5 MG/DL (1.8-2.4) L Total Bilirubin 0.5 MG/DL (0.2-1.0) Aspartate Amino Transf (AST/SGOT) 28 U/L (15-37) Alanine Aminotransferase (ALT/SGPT) 22 U/L (12-78) Alkaline Phosphatase 59 U/L (46-116) Total Protein 6.3 G/DL (6.4-8.2) L Albumin 2.5 G/DL (3.4-5.0) L Globulin 3.8 g/dL Albumin/Globulin Ratio 0.7 (1.0-2.7) L Folate 33.7 NG/ML (8.6-58.9) Current Medications Medications (Trade) Dose Ordered Sig/Jamel Route PRN Reason Start Time Stop Time Status Last Admin Dose Admin Acetaminophen (Tylenol) 650 mg Q4H PRN ORAL Mild Pain/Temp > 100.5 10/20/18 14:15 11/19/18 14:14 10/23/18 20:59 Amlodipine Besylate (Norvasc) 10 mg DAILY ORAL 10/23/18 09:00 11/22/18 08:59 10/25/18 08:49 Aspirin (ASA) 81 mg DAILY ORAL 10/21/18 09:00 11/20/18 08:59 10/25/18 08:42 Atorvastatin Calcium (Lipitor) 10 mg BEDTIME ORAL 10/22/18 21:00 11/19/18 20:59 10/24/18 21:30 Bisacodyl (Dulcolax) 10 mg DAILYPRN PRN ORAL Constipation 10/24/18 18:45 11/23/18 18:44 10/24/18 18:43 Clonidine HCl (Catapres Tab) 0.1 mg TIDPRN ORAL 10/20/18 20:00 11/19/18 19:59 Dextrose/Sodium Chloride 1,000 ml @ 75 mls/hr [id number] IV 10/23/18 10:20 11/22/18 10:19 10/25/18 02:34 Diphenhydramine HCl (Benadryl) 25 mg Q6H PRN ORAL Itching 10/20/18 14:15 11/19/18 14:14 10/22/18 21:32 Docusate Sodium (Colace) 100 mg DAILY ORAL 10/25/18 09:00 11/24/18 08:59 10/25/18 08:42 Folic Acid (Folate) 5 mg DAILY ORAL 10/22/18 10:45 11/21/18 10:44 10/25/18 08:42 Hydralazine HCl (Apresoline) 25 mg Q4H PRN ORAL bp over 160 syst 10/20/18 14:30 11/19/18 14:29 Magnesium Hydroxide (Mom) 30 ml Q4H PRN ORAL Constipation 10/24/18 18:30 11/23/18 18:29 10/24/18 18:43 Metoprolol Tartrate (Lopressor) 25 mg EVERY 12 HOURS ORAL 10/20/18 09:00 11/19/18 08:59 10/25/18 08:50 Nitroglycerin (Ntg) 1 patch Q24H TDERMAL 10/20/18 15:00 11/19/18 14:59 10/24/18 15:03 Polyethylene Glycol (Miralax) 17 gm DAILY PRN ORAL Constipation 10/24/18 18:30 11/23/18 18:29 Potassium Phosphate 20 mm/ Sodium Chloride 281.6667 ml @ 46.944 m... ONCE ONCE IV 10/25/18 12:00 10/25/18 17:59 Quetiapine Fumarate (SEROquel) 12.5 mg BID ORAL 10/20/18 18:00 11/19/18 17:59 10/25/18 08:45 Tamsulosin HCl (Flomax) 0.4 mg BEDTIME ORAL 10/20/18 21:00 11/19/18 20:59 10/24/18 21:30 Bret Lilly MD Oct 25, 2018 11:41
[2018-10-25 12:00] VITALS: BP 129/52
[2018-10-25] MEDS ORDERED: Potassium Phosphate 20 MM in NS 275 ML IV ONE (12:00)
--- NOTE | 2018-10-25 12:10 | NUR ---
*-* DISCHARGE PLANNED*-* PATIENT IS DISCHARGED TO: [facility] ROOM# 120-A SKILLED T:[phone] FOR NURSE TO NURSE REPORT. 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
--- NOTE | 2018-10-25 12:59 | NUR ---
NURSE NOTES: Second call to Dr. Mendoza regarding patient's family refusing patient to be discharged to [facility]. Left message, awaiting call back. Will continue to monitor patient.
--- NOTE | 2018-10-25 13:32 | Nephrology Progress Note ---
Assessment/Plan Problem List: (1) ARF (acute renal failure) Assessment: Cr lower (2) UTI (urinary tract infection) (3) Anemia (4) Dehydration Assessment Acute on chronic renal failure Cr lowering Dehydration Anemia UTI Elevated troponin HTN Dementia Plan Plan: phos and mag supplement folic acid supplement Hydrate- change to hypotonic orion Flomax Nitropaste ASA BP control per orders Subjective ROS Limited/Unobtainable: No Objective Objective Last 24 Hour Vital Signs Date Time Temp Pulse Resp B/P (MAP) Pulse Ox O2 Delivery O2 Flow Rate FiO2 10/25/18 12:00 70 10/25/18 09:00 Room Air 10/25/18 08:50 68 151/64 10/25/18 08:49 68 151/64 10/25/18 08:00 97.7 66 16 140/71 (94) 99 10/25/18 08:00 79 10/25/18 04:00 98.1 82 18 108/81 (90) 96 10/25/18 04:00 82 10/25/18 00:00 56 10/25/18 00:00 98.3 57 19 123/50 (74) 98 10/24/18 21:30 81 149/74 10/24/18 21:00 Room Air 10/24/18 20:00 98.6 81 18 149/74 (99) 98 10/24/18 20:00 80 10/24/18 16:00 66 10/24/18 16:00 97.5 78 20 136/66 (89) 98 10/24/18 15:03 120/75 Intake and Output 10/24/18 10/25/18 19:00 07:00 Intake Total 120 ml Balance 120 ml Intake Oral 120 ml # Voids 2 Laboratory Tests 10/25/18 05:50: White Blood Count 4.9, Red Blood Count 3.03L, Hemoglobin 9.9L, Hematocrit 30.2L , Mean Corpuscular Volume 100H, Mean Corpuscular Hemoglobin 32.8H, Mean Corpuscular Hemoglobin Concent 32.9, Red Cell Distribution Width 11.9, Platelet Count 167, Mean Platelet Volume 7.0, Neutrophils (%) (Auto) 78.6H, Lymphocytes ( %) (Auto) 11.7L, Monocytes (%) (Auto) 7.1, Eosinophils (%) (Auto) 2.1, Basophils (%) (Auto) 0.4, Sodium Level 147H, Potassium Level 3.8, Chloride Level 112H, Carbon Dioxide Level 26, Anion Gap 9, Blood Urea Nitrogen 16, Creatinine 1.7H, Estimat Glomerular Filtration Rate , Glucose Level 165H, Calcium Level 9.1, Phosphorus Level 2.2L, Magnesium Level 1.5L, Total Bilirubin 0.5, Aspartate Amino Transf (AST/SGOT) 28, Alanine Aminotransferase (ALT/SGPT) 22, Alkaline Phosphatase 59, Total Protein 6.3L, Albumin 2.5L, Globulin 3.8, Albumin/Globulin Ratio 0.7L, Folate 33.7 Height (Feet): 5 Height (Inches): 5.00 Weight (Pounds): 150 General Appearance: no apparent distress Objective no change Wallace Ny MD Oct 25, 2018 13:32
--- NOTE | 2018-10-25 13:42 | NUR ---
NURSE NOTES: Dr. Mendoza contacted this nurse and acknowledged daughter, Kimberly's, request to transfer patient to [facility] instead of [facility]. Dr. Mendoza acknowledged and is agreeable. Contacted case management rn and left message.
[2018-10-25] MEDS: Nitroglycerin Patch 0.4mg TDERMAL SCH (15:29)
[2018-10-25 16:00] VITALS: BP 126/60
--- NOTE | 2018-10-25 16:01 | NUR ---
*-* DISCHARGE PLANNING *-* PATIENT HAS BEEN REFERRED TO: [facility] P:[phone] F:[phone]
--- NOTE | 2018-10-25 16:07 | NUR ---
NURSE NOTES: Blanchable sacral redness noticed. Cleansed with soap and water and optifoam applied. Will continue to turn patient every 2 hour and monitor.
--- NOTE | 2018-10-25 17:18 | NUR ---
NURSE NOTES: Per Alana social work case manager, placement for [facility] will be ready by tomorrow 10/26/18. CN made aware. Family member at bedside, and made aware of placement. Will continue to monitor.
--- NOTE | 2018-10-25 17:37 | General Progress Note ---
Assessment/Plan Assessment/Plan Assessment and Recs: # Anemia of chronic disease with a hx of levi on ckd --> Anemia workup has been ordered --> No evidence of hemolysis is noted, peripheral smear has been reviewed. --> Hgb goal >7. Transfuse prn. --> Epogen or iron at this time is not particularly indicated --> Medications have been reviewed # Thrombocytopenia -- plts 130-200k --> hepatitis and hiv order if plts going down --> us abd to be ordered as well if plt downtrends # ACS (acute coronary syndrome) -- troponin is elevated. He may have a non- STEMI --> asa and lovenox were given --> cardiology recs appreciated # UTI (urinary tract infection) --> on abx as per id # LEVI on Ckd --> as per renal # Proteinuria # Encephalopathy acute The timing of this note does not necessarily reflect the time of the patient was seen Greatly appreciate consultation! Subjective ROS Limited/Unobtainable: Yes Allergies: Coded Allergies: EMMETT INHIBITORS (Verified Allergy, Severe, 10/20/18) cough and severe facial swelling Subjective 10/23: seen by bedside, awake, comfortable, no events. 10/25: Pt is awake and comfortable, no events. Objective Last 24 Hour Vital Signs Date Time Temp Pulse Resp B/P (MAP) Pulse Ox O2 Delivery O2 Flow Rate FiO2 10/25/18 16:00 97.1 76 16 126/60 (82) 97 10/25/18 16:00 63 10/25/18 15:29 126/60 10/25/18 12:00 98.1 56 16 129/52 (77) 98 10/25/18 12:00 70 10/25/18 09:00 Room Air 10/25/18 08:50 68 151/64 10/25/18 08:49 68 151/64 10/25/18 08:00 97.7 66 16 140/71 (94) 99 10/25/18 08:00 79 10/25/18 04:00 98.1 82 18 108/81 (90) 96 10/25/18 04:00 82 10/25/18 00:00 56 10/25/18 00:00 98.3 57 19 123/50 (74) 98 10/24/18 21:30 81 149/74 10/24/18 21:00 Room Air 10/24/18 20:00 98.6 81 18 149/74 (99) 98 10/24/18 20:00 80 Intake and Output 10/24/18 10/25/18 18:59 06:59 Intake Total 120 ml Balance 120 ml Intake Oral 120 ml # Voids 2 Laboratory Tests 10/25/18 05:50: White Blood Count 4.9, Red Blood Count 3.03L, Hemoglobin 9.9L, Hematocrit 30.2L , Mean Corpuscular Volume 100H, Mean Corpuscular Hemoglobin 32.8H, Mean Corpuscular Hemoglobin Concent 32.9, Red Cell Distribution Width 11.9, Platelet Count 167, Mean Platelet Volume 7.0, Neutrophils (%) (Auto) 78.6H, Lymphocytes ( %) (Auto) 11.7L, Monocytes (%) (Auto) 7.1, Eosinophils (%) (Auto) 2.1, Basophils (%) (Auto) 0.4, Sodium Level 147H, Potassium Level 3.8, Chloride Level 112H, Carbon Dioxide Level 26, Anion Gap 9, Blood Urea Nitrogen 16, Creatinine 1.7H, Estimat Glomerular Filtration Rate , Glucose Level 165H, Calcium Level 9.1, Phosphorus Level 2.2L, Magnesium Level 1.5L, Total Bilirubin 0.5, Aspartate Amino Transf (AST/SGOT) 28, Alanine Aminotransferase (ALT/SGPT) 22, Alkaline Phosphatase 59, Total Protein 6.3L, Albumin 2.5L, Globulin 3.8, Albumin/Globulin Ratio 0.7L, Folate 33.7 Height (Feet): 5 Height (Inches): 5.00 Weight (Pounds): 150 Objective Physical Exam General Appearance: A+O x3, NAD HEENT: normocephalic, atraumatic Neck: non-tender, normal alignment Respiratory/Chest: chest wall non-tender, lungs clear Cardiovascular/Chest: normal peripheral pulses, normal rate Abdomen: normal bowel sounds, non tender Extremities: normal range of motion Shamir Mendez MD Oct 25, 2018 17:37
--- NOTE | 2018-10-25 19:11 | NUR ---
HAND-OFF: Report given to BRANT Mckenzie.
[2018-10-25 20:00] VITALS: BP 113/70
--- NOTE | 2018-10-25 21:16 | General Progress Note ---
Assessment/Plan Problem List: (1) Encephalopathy acute ICD Codes: G93.40 - Encephalopathy, unspecified SNOMED: 45537753, 482244365 (2) UTI (urinary tract infection) ICD Codes: N39.0 - Urinary tract infection, site not specified SNOMED: 01677773, 514793105 Qualifiers: Qualified Codes: N30.00 - Acute cystitis without hematuria (3) ARF (acute renal failure) ICD Codes: N17.9 - Acute kidney failure, unspecified SNOMED: 17862370 Qualifiers: Qualified Codes: N17.9 - Acute kidney failure, unspecified (4) Dehydration ICD Codes: E86.0 - Dehydration SNOMED: 92525540 Status: progressing Assessment/Plan dc to snf afebrile confused due to dementia uti improving dehydration reviewed chart and labs Subjective ROS Limited/Unobtainable: Yes Allergies: Coded Allergies: EMMETT INHIBITORS (Verified Allergy, Severe, 10/20/18) cough and severe facial swelling Objective Last 24 Hour Vital Signs Date Time Temp Pulse Resp B/P (MAP) Pulse Ox O2 Delivery O2 Flow Rate FiO2 10/25/18 20:00 98.1 78 20 113/70 (84) 98 10/25/18 20:00 72 10/25/18 16:00 97.1 76 16 126/60 (82) 97 10/25/18 16:00 63 10/25/18 15:29 126/60 10/25/18 12:00 98.1 56 16 129/52 (77) 98 10/25/18 12:00 70 10/25/18 09:00 Room Air 10/25/18 08:50 68 151/64 10/25/18 08:49 68 151/64 10/25/18 08:00 97.7 66 16 140/71 (94) 99 10/25/18 08:00 79 10/25/18 04:00 98.1 82 18 108/81 (90) 96 10/25/18 04:00 82 10/25/18 00:00 56 10/25/18 00:00 98.3 57 19 123/50 (74) 98 10/24/18 21:30 81 149/74 Intake and Output 10/24/18 10/25/18 18:59 06:59 Intake Total 120 ml Balance 120 ml Intake Oral 120 ml # Voids 2 Laboratory Tests 10/25/18 05:50: White Blood Count 4.9, Red Blood Count 3.03L, Hemoglobin 9.9L, Hematocrit 30.2L , Mean Corpuscular Volume 100H, Mean Corpuscular Hemoglobin 32.8H, Mean Corpuscular Hemoglobin Concent 32.9, Red Cell Distribution Width 11.9, Platelet Count 167, Mean Platelet Volume 7.0, Neutrophils (%) (Auto) 78.6H, Lymphocytes ( %) (Auto) 11.7L, Monocytes (%) (Auto) 7.1, Eosinophils (%) (Auto) 2.1, Basophils (%) (Auto) 0.4, Sodium Level 147H, Potassium Level 3.8, Chloride Level 112H, Carbon Dioxide Level 26, Anion Gap 9, Blood Urea Nitrogen 16, Creatinine 1.7H, Estimat Glomerular Filtration Rate , Glucose Level 165H, Calcium Level 9.1, Phosphorus Level 2.2L, Magnesium Level 1.5L, Total Bilirubin 0.5, Aspartate Amino Transf (AST/SGOT) 28, Alanine Aminotransferase (ALT/SGPT) 22, Alkaline Phosphatase 59, Total Protein 6.3L, Albumin 2.5L, Globulin 3.8, Albumin/Globulin Ratio 0.7L, Folate 33.7 Height (Feet): 5 Height (Inches): 5.00 Weight (Pounds): 150 General Appearance: confused Cardiovascular: normal rate Respiratory/Chest: lungs clear Abdomen: soft Raquel Mendzoa MD Oct 25, 2018 21:16
[2018-10-25] MEDS: Tamsulosin 0.4mg cap ORAL SCH (21:35)
--- NOTE | 2018-10-25 23:50 | Cardiology Progress Note ---
Assessment/Plan Assessment/Plan 1. Slight elevation of troponin I level due to [id number] myocardial infarction type 2 versus elevated troponin level due to chronic kidney disease, continue aspirin, atorvastatin and metoprolol, normal LV systolic function with LVEF at 55%. 2. Hypertension, well controlled, continue amlodipine and metoprolol. 3. LEVI, creatinine not checked today. Subjective Subjective Sinus rhythm at rate of 78. Objective Last 24 Hour Vital Signs Date Time Temp Pulse Resp B/P (MAP) Pulse Ox O2 Delivery O2 Flow Rate FiO2 10/25/18 21:36 72 113/70 10/25/18 21:00 Room Air 10/25/18 20:00 98.1 78 20 113/70 (84) 98 10/25/18 20:00 72 10/25/18 16:00 97.1 76 16 126/60 (82) 97 10/25/18 16:00 63 10/25/18 15:29 126/60 10/25/18 12:00 98.1 56 16 129/52 (77) 98 10/25/18 12:00 70 10/25/18 09:00 Room Air 10/25/18 08:50 68 151/64 10/25/18 08:49 68 151/64 10/25/18 08:00 97.7 66 16 140/71 (94) 99 10/25/18 08:00 79 10/25/18 04:00 98.1 82 18 108/81 (90) 96 10/25/18 04:00 82 10/25/18 00:00 56 10/25/18 00:00 98.3 57 19 123/50 (74) 98 Intake and Output 10/24/18 10/25/18 19:00 07:00 Intake Total 120 ml Balance 120 ml Intake Oral 120 ml # Voids 2 Laboratory Tests Test 10/25/18 05:50 White Blood Count 4.9 K/UL (4.8-10.8) Red Blood Count 3.03 M/UL (4.70-6.10) L Hemoglobin 9.9 G/DL (14.2-18.0) L Hematocrit 30.2 % (42.0-52.0) L Mean Corpuscular Volume 100 FL (80-99) H Mean Corpuscular Hemoglobin 32.8 PG (27.0-31.0) H Mean Corpuscular Hemoglobin Concent 32.9 G/DL (32.0-36.0) Red Cell Distribution Width 11.9 % (11.6-14.8) Platelet Count 167 K/UL (150-450) Mean Platelet Volume 7.0 FL (6.5-10.1) Neutrophils (%) (Auto) 78.6 % (45.0-75.0) H Lymphocytes (%) (Auto) 11.7 % (20.0-45.0) L Monocytes (%) (Auto) 7.1 % (1.0-10.0) Eosinophils (%) (Auto) 2.1 % (0.0-3.0) Basophils (%) (Auto) 0.4 % (0.0-2.0) Sodium Level 147 MMOL/L (136-145) H Potassium Level 3.8 MMOL/L (3.5-5.1) Chloride Level 112 MMOL/L (98-107) H Carbon Dioxide Level 26 MMOL/L (21-32) Anion Gap 9 mmol/L (5-15) Blood Urea Nitrogen 16 mg/dL (7-18) Creatinine 1.7 MG/DL (0.55-1.30) H Estimat Glomerular Filtration Rate mL/min (>60) Glucose Level 165 MG/DL (74-106) H Calcium Level 9.1 MG/DL (8.5-10.1) Phosphorus Level 2.2 MG/DL (2.5-4.9) L Magnesium Level 1.5 MG/DL (1.8-2.4) L Total Bilirubin 0.5 MG/DL (0.2-1.0) Aspartate Amino Transf (AST/SGOT) 28 U/L (15-37) Alanine Aminotransferase (ALT/SGPT) 22 U/L (12-78) Alkaline Phosphatase 59 U/L (46-116) Total Protein 6.3 G/DL (6.4-8.2) L Albumin 2.5 G/DL (3.4-5.0) L Globulin 3.8 g/dL Albumin/Globulin Ratio 0.7 (1.0-2.7) L Folate 33.7 NG/ML (8.6-58.9) Objective HEENT: Atraumatic and normocephalic. Anicteric. Pupils are equal, round, and reactive to light and accommodation. Extraocular muscles intact. NECK: JVP less than 5 cm. No carotid bruit. Carotid upstrokes 2+ bilaterally. CARDIOVASCULAR SYSTEM: Normal S1, S2. Regular rate and rhythm. No murmurs, gallops, or rubs. PMI is at fourth intercostal space at the midclavicular line. LUNGS: Clear to auscultation bilaterally. ABDOMEN: Soft, nontender, and nondistended. No hepatosplenomegaly. Positive bowel sounds. EXTREMITIES: No evidence of edema, clubbing, or cyanosis. Both upper extremity skin shows evidence of large ecchymosis in both forearms. Chris Garcia MD Oct 25, 2018 23:50
[2018-10-26] VITALS (7 sets, daily range): BP systolic 123–151; BP diastolic 55–75
[2018-10-26] MEDS: D5 1/2NS 1,000 ML IV SCH ×2 (05:36→18:32)
--- NOTE | 2018-10-26 07:21 | NUR ---
HAND-OFF: Report given to BRANT Corona. Pt is in stable condition; plan of care endorsed.
--- NOTE | 2018-10-26 07:24 | NUR ---
NURSE NOTES: Received report from BRANT Mckenzie. Patient in bed resting, no active s/s cardiac, respiratory distress noticed at this time. Denies pain at this time. SR with HR 56, patient AO x1. IV running at prescribed rate, IV site asymptomatic, patent, intact. Bed in lowest position, side rails up x3, call light within reach. Will continue to monitor.
[2018-10-26] MEDS: Metoprolol 25mg tab ORAL SCH ×2 (08:38→21:23)
[2018-10-26] MEDS: Aspirin Baby 81mg ORAL SCH (08:38)
[2018-10-26] MEDS: Docusate 100mg cap ORAL SCH (08:39)
--- NOTE | 2018-10-26 12:00 | NUR ---
NURSE NOTES: Kashmir Mccann, case therapist, regarding placement after discharge. Per Siobhan, she is still working on the case. Will continue to follow up.
--- NOTE | 2018-10-26 12:16 | NUR ---
*-* DISCHARGE PLANNED *-* PATIENT IS TO BE DISCHARGED [facility]# 127-A SKILLED T:[phone] FOR NURSE TO NURSE REPORT [facility] HAS BEEN ARRANGED FOR MILITARY POLICE OFFICER AT [address] [id number]
--- NOTE | 2018-10-26 12:33 | Infectious Diseases Prog Note ---
Assessment/Plan Assessment/Plan IMPRESSION: 1. Altered mental status, encephalopathy 2. Elevated troponin likely non-ST myocardial infarction. 3. Acute renal failure. 4. Dementia. 5. Hypertension. 6. DNR status RECOMMENDATION: Observe off antibiotic Subjective ROS Limited/Unobtainable: Yes Allergies: Coded Allergies: EMMETT INHIBITORS (Verified Allergy, Severe, 10/20/18) cough and severe facial swelling Objective Vital Signs Last 24 Hour Vital Signs Date Time Temp Pulse Resp B/P (MAP) Pulse Ox O2 Delivery O2 Flow Rate FiO2 10/26/18 12:00 97.5 85 20 134/62 (86) 98 10/26/18 09:00 Room Air 10/26/18 08:39 74 135/75 10/26/18 08:38 74 135/75 10/26/18 08:00 64 10/26/18 08:00 97.1 73 20 135/75 (95) 98 10/26/18 04:00 65 10/26/18 04:00 98.1 56 18 129/55 (79) 96 10/26/18 00:00 98.0 58 18 123/59 (80) 96 10/26/18 00:00 55 10/25/18 21:36 72 113/70 10/25/18 21:00 Room Air 10/25/18 20:00 98.1 78 20 113/70 (84) 98 10/25/18 20:00 72 10/25/18 16:00 97.1 76 16 126/60 (82) 97 10/25/18 16:00 63 10/25/18 15:29 126/60 Height (Feet): 5 Height (Inches): 5.00 Weight (Pounds): 150 General Appearance: no acute distress HEENT: mucous membranes moist Respiratory/Chest: lungs clear Cardiovascular: normal rate Abdomen: soft, non tender Extremities: no edema Neurologic/Psychiatric: aphasia Current Medications Medications (Trade) Dose Ordered Sig/Jamel Route PRN Reason Start Time Stop Time Status Last Admin Dose Admin Acetaminophen (Tylenol) 650 mg Q4H PRN ORAL Mild Pain/Temp > 100.5 10/20/18 14:15 11/19/18 14:14 10/23/18 20:59 Amlodipine Besylate (Norvasc) 10 mg DAILY ORAL 10/23/18 09:00 11/22/18 08:59 10/26/18 08:39 Aspirin (ASA) 81 mg DAILY ORAL 10/21/18 09:00 11/20/18 08:59 10/26/18 08:38 Atorvastatin Calcium (Lipitor) 10 mg BEDTIME ORAL 10/22/18 21:00 11/19/18 20:59 10/25/18 21:36 Bisacodyl (Dulcolax) 10 mg DAILYPRN PRN ORAL Constipation 10/24/18 18:45 11/23/18 18:44 10/24/18 18:43 Clonidine HCl (Catapres Tab) 0.1 mg TIDPRN ORAL 10/20/18 20:00 11/19/18 19:59 Dextrose/Sodium Chloride 1,000 ml @ 75 mls/hr [id number] IV 10/23/18 10:20 11/22/18 10:19 10/26/18 05:36 Diphenhydramine HCl (Benadryl) 25 mg Q6H PRN ORAL Itching 10/20/18 14:15 11/19/18 14:14 10/22/18 21:32 Docusate Sodium (Colace) 100 mg DAILY ORAL 10/25/18 09:00 11/24/18 08:59 10/26/18 08:39 Folic Acid (Folate) 5 mg DAILY ORAL 10/22/18 10:45 11/21/18 10:44 10/26/18 08:44 Hydralazine HCl (Apresoline) 25 mg Q4H PRN ORAL bp over 160 syst 10/20/18 14:30 11/19/18 14:29 Magnesium Hydroxide (Mom) 30 ml Q4H PRN ORAL Constipation 10/24/18 18:30 11/23/18 18:29 10/24/18 18:43 Metoprolol Tartrate (Lopressor) 25 mg EVERY 12 HOURS ORAL 10/20/18 09:00 11/19/18 08:59 10/26/18 08:38 Nitroglycerin (Ntg) 1 patch Q24H TDERMAL 10/20/18 15:00 11/19/18 14:59 10/25/18 15:29 Polyethylene Glycol (Miralax) 17 gm DAILY PRN ORAL Constipation 10/24/18 18:30 11/23/18 18:29 Quetiapine Fumarate (SEROquel) 12.5 mg BID ORAL 10/20/18 18:00 11/19/18 17:59 10/26/18 08:38 Tamsulosin HCl (Flomax) 0.4 mg BEDTIME ORAL 10/20/18 21:00 11/19/18 20:59 10/25/18 21:35 Bret Lilly MD Oct 26, 2018 12:32
--- NOTE | 2018-10-26 12:55 | NUR ---
*-* DISCHARGE PLANNING *-* PATIENT HAS BEEN REFERRED TO: [facility] P:[phone] F:[phone]
--- NOTE | 2018-10-26 14:26 | NUR ---
*-* DISCHARGE PLANNING *-* PATIENT HAS BEEN REFERRED TO: [facility] P:[phone] F:[phone]
[2018-10-26] MEDS: Nitroglycerin Patch 0.4mg TDERMAL SCH (14:36)
--- NOTE | 2018-10-26 15:46 | NUR ---
NURSE NOTES: Addendum: 10/26/[address] RN Kashmir Mccann, onsite case manager, second time regarding placement after discharge. Per Siobhan, still arranging bed. Will continue to follow up.
--- NOTE | 2018-10-26 17:04 | Nephrology Progress Note ---
Assessment/Plan Problem List: (1) ARF (acute renal failure) Assessment: Cr lower (2) UTI (urinary tract infection) (3) Anemia (4) Dehydration Assessment Acute on chronic renal failure Cr lowering Dehydration Anemia UTI Elevated troponin HTN Dementia Plan Plan: phos and mag supplement folic acid supplement Hydrate- change to hypotonic orion Flomax Nitropaste ASA BP control per orders Subjective ROS Limited/Unobtainable: No Constitutional: Reports: malaise Objective Objective Last 24 Hour Vital Signs Date Time Temp Pulse Resp B/P (MAP) Pulse Ox O2 Delivery O2 Flow Rate FiO2 10/26/18 16:00 97.0 86 19 134/62 (86) 98 10/26/18 14:36 117/73 10/26/18 12:00 53 10/26/18 12:00 97.5 85 20 134/62 (86) 98 10/26/18 09:00 Room Air 10/26/18 08:39 74 135/75 10/26/18 08:38 74 135/75 10/26/18 08:00 64 10/26/18 08:00 97.1 73 20 135/75 (95) 98 10/26/18 04:00 65 10/26/18 04:00 98.1 56 18 129/55 (79) 96 10/26/18 00:00 98.0 58 18 123/59 (80) 96 10/26/18 00:00 55 10/25/18 21:36 72 113/70 10/25/18 21:00 Room Air 10/25/18 20:00 98.1 78 20 113/70 (84) 98 10/25/18 20:00 72 Intake and Output 10/25/18 10/26/18 19:00 07:00 Intake Total 240 ml 30 ml Balance 240 ml 30 ml Intake Oral 240 ml 30 ml # Voids 2 4 Height (Feet): 5 Height (Inches): 5.00 Weight (Pounds): 150 General Appearance: no apparent distress Cardiovascular: normal rate Respiratory/Chest: decreased breath sounds Abdomen: soft Objective no change Wallace Ny MD Oct 26, 2018 17:04
--- NOTE | 2018-10-26 17:06 | NUR ---
*-* DISCHARGE PLANNED PATIENT IS DISCHARGE TO: [facility]# 79-A SKILLED T:[phone] FOR NURSE TO NURSE REPORT [facility] HAS BEEN ARRANGED FOR BILINGUAL SECRETARY AT [address] [id number]
--- NOTE | 2018-10-26 18:00 | NUR ---
NURSE NOTES: Report given to Zoran Vidal RN. [facility] Endorsed to discontinue all home medication, continue all hospital medication, list of medication attached to patient file. Blanchable redness on sacral area picture taken, uploaded. Belonging list checked, patient unable to sign, got 2 nurse sign. Family member, Nathalia made aware patient will discharge to [facility]. Per BRANT Vidal, requesting patient to be discharge around 10 pm 10/26/18. Life line re-arranged to 10 pm. Will continue to monitor.
--- NOTE | 2018-10-26 19:42 | General Progress Note ---
Assessment/Plan Assessment/Plan Assessment and Recs: # Anemia of chronic disease with a hx of levi on ckd --> Anemia workup has been ordered --> No evidence of hemolysis is noted, peripheral smear has been reviewed. --> Hgb goal >7. Transfuse prn. --> Epogen or iron at this time is not particularly indicated --> Medications have been reviewed # Thrombocytopenia -- plts 130-200k --> hepatitis and hiv order if plts going down --> us abd to be ordered as well if plt downtrends # ACS (acute coronary syndrome) -- troponin is elevated. He may have a non- STEMI --> asa and lovenox were given --> cardiology recs appreciated # UTI (urinary tract infection) --> on abx as per id # LEVI on Ckd --> as per renal # Proteinuria # Encephalopathy acute The timing of this note does not necessarily reflect the time of the patient was seen Greatly appreciate consultation! Subjective Constitutional: Denies: no symptoms, chills, diaphoresis, fever, malaise, weakness, other HEENT: Denies: no symptoms, eye pain, blurred vision, tearing, double vision, ear pain, ear discharge, nose pain, nose congestion, throat pain, throat swelling, mouth pain, mouth swelling, other Cardiovascular: Denies: no symptoms, chest pain, edema, irregular heart rate, lightheadedness, palpitations, syncope, other Respiratory: Denies: no symptoms, cough, orthopnea, shortness of breath, SOB with excertion, SOB at rest, sputum, stridor, wheezing, other Gastrointestinal/Abdominal: Denies: no symptoms, abdomen distended, abdominal pain, black stools, tarry stools, blood in stool, constipated, diarrhea, difficulty swallowing, nausea, poor appetite, poor fluid intake, rectal bleeding , vomiting, other Genitourinary: Denies: no symptoms, burning, discharge, frequency, flank pain, hematuria, incontinence, pain, urgency, other Neurologic/Psychiatric: Denies: no symptoms, anxiety, depressed, emotional problems, headache, numbness, paresthesia, pre-existing deficit, seizure, tingling, tremors, weakness, other Endocrine: Denies: no symptoms, excessive sweating, flushing, intolerance to cold, intolerance to heat, increased hunger, increased thirst, increased urine, unexplained weight gain, unexplained weight loss, other Hematologic/Lymphatic: Denies: no symptoms, anemia, easy bleeding, easy bruising, other Allergies: Coded Allergies: EMMETT INHIBITORS (Verified Allergy, Severe, 10/20/18) cough and severe facial swelling Subjective 10/23: seen by bedside, awake, comfortable, no events. 10/25: Pt is awake and comfortable, no events. 10/26: seen by bedside, awake, comfortable, no events Objective Last 24 Hour Vital Signs Date Time Temp Pulse Resp B/P (MAP) Pulse Ox O2 Delivery O2 Flow Rate FiO2 10/26/18 16:00 97.0 86 19 134/62 (86) 98 10/26/18 16:00 79 10/26/18 14:36 117/73 10/26/18 12:00 53 10/26/18 12:00 97.5 85 20 134/62 (86) 98 10/26/18 09:00 Room Air 10/26/18 08:39 74 135/75 10/26/18 08:38 74 135/75 10/26/18 08:00 64 10/26/18 08:00 97.1 73 20 135/75 (95) 98 10/26/18 04:00 65 10/26/18 04:00 98.1 56 18 129/55 (79) 96 10/26/18 00:00 98.0 58 18 123/59 (80) 96 10/26/18 00:00 55 10/25/18 21:36 72 113/70 10/25/18 21:00 Room Air 10/25/18 20:00 98.1 78 20 113/70 (84) 98 10/25/18 20:00 72 Intake and Output 10/25/18 10/26/18 19:00 07:00 Intake Total 240 ml 30 ml Balance 240 ml 30 ml Intake Oral 240 ml 30 ml # Voids 2 4 Height (Feet): 5 Height (Inches): 5.00 Weight (Pounds): 150 Objective Physical Exam General Appearance: A+O x3, NAD HEENT: normocephalic, atraumatic Neck: non-tender, normal alignment Respiratory/Chest: chest wall non-tender, lungs clear Cardiovascular/Chest: normal peripheral pulses, normal rate Abdomen: normal bowel sounds, non tender Extremities: normal range of motion Shamir Mendez MD Oct 26, 2018 19:42
--- NOTE | 2018-10-26 19:46 | NUR ---
NURSE NOTES: Received report from Manfred Orantes RN. Pt is ready to be discharged and [facility] is scheduled to oyster picker the pt. Mag 1.5 noted as of 10/25, Dr. Mendoza and Dr. Garcia checked in their Dr's note but no new order for it. Previous shift contacted Dr. Garcia and is awaiting for the answer. Addendum: 10/26/18 at 1957 by AMY HUERTA RN Pt is resting in the bed w/o distress. Safety measures are applied w/ bed alarm on, bed in lowest position, side rails up x3, and breaks are engaged. Call light and side table are w/in reach. Will follow plans of care.
--- NOTE | 2018-10-26 19:50 | NUR ---
NURSE NOTES: Dr. Kelly Garcia made aware patient mg level 10/25/18 1.5. No order given yet. Will continue to monitor.
--- NOTE | 2018-10-26 19:55 | NUR ---
HAND-OFF: Report given to BRANT Chin.
[2018-10-26] MEDS: Tamsulosin 0.4mg cap ORAL SCH (21:22)
[2018-10-26] MEDS: Milk of Magnesia 30ml Ud ORAL PRN (21:23)
--- NOTE | 2018-10-26 21:30 | General Progress Note ---
Assessment/Plan Problem List: (1) Encephalopathy acute ICD Codes: G93.40 - Encephalopathy, unspecified SNOMED: 49978079, 880129458 (2) UTI (urinary tract infection) ICD Codes: N39.0 - Urinary tract infection, site not specified SNOMED: 05413318, 135509414 Qualifiers: Qualified Codes: N30.00 - Acute cystitis without hematuria (3) ARF (acute renal failure) ICD Codes: N17.9 - Acute kidney failure, unspecified SNOMED: 89876845 Qualifiers: Qualified Codes: N17.9 - Acute kidney failure, unspecified (4) Dehydration ICD Codes: E86.0 - Dehydration SNOMED: 63506859 Status: progressing Assessment/Plan placement issue dementia uti improving vitals stable reviewed chart and labs Subjective ROS Limited/Unobtainable: Yes Allergies: Coded Allergies: EMMETT INHIBITORS (Verified Allergy, Severe, 10/20/18) cough and severe facial swelling Objective Last 24 Hour Vital Signs Date Time Temp Pulse Resp B/P (MAP) Pulse Ox O2 Delivery O2 Flow Rate FiO2 10/26/18 21:23 68 151/64 10/26/18 20:00 98.0 68 19 151/64 (93) 97 10/26/18 16:00 97.0 86 19 134/62 (86) 98 10/26/18 16:00 79 10/26/18 14:36 117/73 10/26/18 12:00 53 10/26/18 12:00 97.5 85 20 134/62 (86) 98 10/26/18 09:00 Room Air 10/26/18 08:39 74 135/75 10/26/18 08:38 74 135/75 10/26/18 08:00 64 10/26/18 08:00 97.1 73 20 135/75 (95) 98 10/26/18 04:00 65 10/26/18 04:00 98.1 56 18 129/55 (79) 96 10/26/18 00:00 98.0 58 18 123/59 (80) 96 10/26/18 00:00 55 10/25/18 21:36 72 113/70 Intake and Output 10/25/18 10/26/18 18:59 06:59 Intake Total 240 ml 30 ml Balance 240 ml 30 ml Intake Oral 240 ml 30 ml # Voids 2 4 Laboratory Tests 10/26/18 20:11: Magnesium Level [Pending] Height (Feet): 5 Height (Inches): 5.00 Weight (Pounds): 150 General Appearance: confused Cardiovascular: normal rate Respiratory/Chest: lungs clear Raquel Mendoza MD Oct 26, 2018 21:30
[2018-10-26] MEDS ORDERED: D5 1/2NS 1000ml IV ONE (22:09)
[2018-10-26] MEDS ORDERED: D5NS 1000ml IV ONE (22:09)
--- NOTE | 2018-10-26 22:11 | NUR ---
NURSE NOTES: Stat result of Mag 1.9. CN made aware. Life line unit 623, Corey Avila, EMT came and pick pulling machine tender the pt. Belonging checked and IV removed from pt. No gas engine operator compressors found on him. Discharged to [facility] RM 79-A, report was given by day shift nurse. Family is aware.
--- NOTE | 2018-10-27 13:23 | Discharge Summary ---
Discharge Summary Discharge Summary _ DATE OF ADMISSION: 10/20/2018 DATE OF DISCHARGE: 10/26/2018 DISCHARGED BY: REASON FOR ADMISSION: 88 years old male with history of hypertension, dementia, presented to emergency department from assisted living, due to altered mental status. Nursing staff noted , that patient became more confused than usually. No reports of nausea ,vomiting ,abdominal pain. No reports of chest pain or shortness of breath. Upon evaluation vital signs were stable except slightly elevated blood pressure 157/88. Laboratory workup revealed no leukocytosis ,hemoglobin 11.3 ,hematocrit 32.7 . BUN 43 , creatinine 3.1 . Troponin elevated - 0.422. Urinalysis revealed evidence of moderate bacteria , positive for leukocyte esterase, minimal pyuria. EKG revealed sinus rhythm , no acute ischemic changes. Chest x-ray revealed no acute cardiopulmonary pathology. CT of the head revealed chronic age-related changes , but was negative for acute intracranial bleeding or mass-effect. Patient was admitted to telemetry floor for further management. CONSULTANTS: master carpenter Dr. Espinoza ID specialist Dr. Laura computer scientist Dr. Ny filler feeder/oncologist Dr. Mendez [facility] COURSE: Patient admitted to telemetry floor. According to master carpenter, patient had slight elevation of troponin level likely due to non-STEMI type II versus due to chronic kidney disease. Nonprofit Fundraiser recommended continue with antiplatelet therapy with aspirin, beta- wyatt, and statin. Echocardiogram revealed preserved ejection fraction of 55% with moderate left ventricular hypertrophy. No evidence of wall motion abnormality. Moderate mitral regurgitation and aortic regurgitation , right ventricular systolic pressure of 23. Lipid panel revealed low HDL of 32. TSH was within normal limits. Blood pressure was managed with beta-wyatt and amlodipine. Nitro-paste continued. Assistant Hall Director closely followed. Renal parameters and electrolytes were closely monitored. Electrolytes corrected as needed/ phosphorus and magnesium . Nephrotoxins were avoided. According to computer scientist, patient had acute on chronic renal failure, likely due to dehydration. With IV hydration, creatinine trended down. Flomax was started. Prior to discharge BUN 16 creatinine 1.7. ID specialist closely followed . Urine cultures was negative. Initial antibiotic was discontinued. ID specialist recommended to observe patient off antibiotics. Separator Inserter seen and evaluated patient . Per filler feeder patient had anemia of chronic disease. Anemia workup also revealed evidence of folate deficiency . Patient started on folic acid supplement. Hemoglobin and hematocrit were closely monitored with goal to keep hemoglobin above 7. Epogen or iron at this time were not indicated. Placement was found and patient was stable for discharge to senior care facility for continuation of care. FINAL DIAGNOSES: Probably NSTEMI type II Possible elevated troponin due to chronic kidney disease Hypertension Acute encephalopathy Possible UTI Acute on chronic renal failure Dehydration Anemia Dementia DISCHARGE MEDICATIONS: List of medication was sent to accepting facility/[facility]. DISCHARGE INSTRUCTIONS: Patient was discharged to the senior care facility/ [facility]. Follow up with medical doctor at the facility. I have been assigned to dictate discharge summary for this account. I was not involved in the patient's management. Trena Garcia NP Oct 27, 2018 13:23
--- NOTE | 2018-10-27 17:48 | Cardiology Report ---
APPROVED REPORT EKG Measurement Heart [id number] VT [id number] Sinus rhythm with occasional premature ventricular complexes Left ventricular hypertrophy with repolarization abnormality Abnormal ECG
== END 2018-10-26 22:10 | DRG 682 ==
LOC: EDBD 23:25 → EMR 23:37 → 2E 10-20 01:29 → EDBEDREQ 10-20 01:48 → 2E 10-21 15:01
DX: N17.9 Acute kidney failure, unspecified (principal); I21.4 Non-ST elevation (NSTEMI) myocardial infarction; N39.0 Urinary tract infection, site not specified; G93.40 Encephalopathy, unspecified; I12.9 Hypertensive chronic kidney disease with stage 1 through stage 4 chronic kidney disease, or unspecified chronic kidney disease; N18.9 Chronic kidney disease, unspecified; E86.0 Dehydration; F03.90 Unspecified dementia, unspecified severity, without behavioral disturbance, psychotic disturbance, mood disturbance, and anxiety; D64.9 Anemia, unspecified; Z88.8 Allergy status to other drugs, medicaments and biological substances; D69.6 Thrombocytopenia, unspecified; Z66 Do not resuscitate; I35.1 Nonrheumatic aortic (valve) insufficiency; I34.0 Nonrheumatic mitral (valve) insufficiency
CPT/HCPCS: 36415; 70450; 71045; 80048; 80053; 80061; 81001; 82140; 82607; 82728; 82746; 83540; 83550; 83735; 83880; 84100; 84443; 84484; 84550; 85025; 86140; 87081; 87086; 93005; 93306; 96361; 96365; 96372; 96375; 99285